=== PATIENT | female | born 1985 | race Caucasian/White ===

== ENCOUNTER 2022-01-23 09:06 | Day surgery (SDC) | payer BC, OTHER ==
--- NOTE | 2022-01-15 15:02 | HP ---
DATE OF SURGERY: 01/23/2022 HISTORY OF PRESENT ILLNESS: The patient is a 36-year-old female presents with complaints of epigastric pain, nausea, vomiting and diarrhea. Also reporting dark stools. It has been going on for several years and getting worse. She had a cholecystectomy 12 years ago. She does have a lot of bloating and gas. She states some crampy pain at times. Reported some watery stools at times, seven to eight times a day that have been mucousy at times. It may have been coffee to black colored. PAST MEDICAL HISTORY: Diabetes. Tachycardia. Hypertension. Reflux. Anxiety. Hyperlipidemia. PAST SURGICAL HISTORY: Tubal ligation. Cholecystectomy. Sinus surgery. Craniotomy for arachnoid cyst that was benign. ALLERGIES: NKDA. MEDICATIONS: Metformin, omeprazole, metoprolol, lisinopril, Pristiq, iron. FAMILY HISTORY: Heart disease. Liver cancer. Lung cancer. Colon cancer. Hypertension. Diabetes. SOCIAL HISTORY: None reported. REVIEW OF SYSTEMS: CONSTITUTIONAL: Denies fever or chills. CHEST: Denies shortness of breath. CVS: Denies chest pain. ABDOMEN: Reports abdomen pain, nausea, vomiting, diarrhea. : Reports rectal bleeding. PHYSICAL EXAMINATION: GENERAL: No acute distress. CHEST: Nonlabored. No shortness of breath. CVS: Regular rate and rhythm. ABDOMEN: Soft, nontender. IMPRESSION: Epigastric pain, nausea, vomiting, diarrhea and dark stools. PLAN: EGD and colonoscopy with Dr. Sam Mancia. As dictated by Ivis Benedict NP.
[~2022-01-23 09:06] MED LIST: Lactated Ringers 1,000 ML IV SCH
[2022-01-23] MEDS ORDERED: Lactated Ringers 1,000 ML IV ONE ×2 (09:54→12:10)
[2022-01-23] MEDS ORDERED: Versed 2 MG/2 ML Injection IV ONE (10:06)
[2022-01-23] MEDS ORDERED: Versed 2 MG/2 ML Injection ONE (10:08)
[2022-01-23] MEDS ORDERED: DIPRIVAN 200 MG/20 ML IV ONE ×2 (12:04→12:25)
[2022-01-23] MEDS ORDERED: Xylocaine-Mpf 2% 5 Ml Vial ONE (12:04)
[2022-01-23 12:56] VITALS: PULSE 71; O2SAT 99
[2022-01-23 13:04] VITALS: BP 138/94
--- NOTE | 2022-01-23 14:20 | OP ---
SURGERY DATE: 01/23/2022 SURGERY TIME: 1208 PREOPERATIVE DIAGNOSIS: 1. PATIENT IS CONSIDERING GASTRIC BYPASS. SHE HAS MORBID OBESITY. SHE HAS LOTS OF NAUSEA, VOMITING, AND EPIGASTRIC PAIN. SHE ALSO HAS 7-8 LOOSE, CLEAR STOOLS A DAY. POSTOPERATIVE DIAGNOSIS: 1. PATIENT IS CONSIDERING GASTRIC BYPASS. SHE HAS MORBID OBESITY. SHE HAS LOTS OF NAUSEA, VOMITING, AND EPIGASTRIC PAIN. SHE ALSO HAS 7-8 LOOSE, CLEAR STOOLS A DAY. PROCEDURE: 1. EGD. 2. Colonoscopy. SURGEON: Sam Mancia M.D. ANESTHESIA: MAC. COMPLICATIONS: None. CONDITION: Stable. OPERATIVE PROCEDURE: The scope was instructed. Phrenoesophageal junction normal. Esophagus normal down to esophagogastric junction. Grade 1/4 gastroesophageal reflux disease. No hiatal hernia. Fundus, body, and antrum normal. Pylorus normal. Duodenal bulb normal. 2nd portion normal. Scope withdrawn, looped upon itself, normal. Scope withdrawn. IMPRESSION: 1. BASICALLY NORMAL EXAMINATION EXCEPT FOR GRADE 1 GASTROESOPHAGEAL REFLUX DISEASE. Lower Scope: Anal digital examination normal. Scope introduced. Advanced up to the cecum. Not a particularly long colon. There was no redundancy. The colon mucosa looked excellent. The base of the cecum, ileocecal valve, and appendiceal orifice normal. Ascending, hepatic, transverse, splenic, descending, sigmoid, rectum, and anus normal. IMPRESSION: NORMAL EXAMINATION.
[2022-01-23 22:00] LABS: 027 TOX PROD PRESUMPTIVE NEGATIVE (NEGATIVE); TOXIGENIC C. DIFF ORG NEGATIVE (NEGATIVE)
== END 2022-01-23 13:03 | disposition home or self-care (01) ==
LOC: SDC 09:06
PROVIDERS: ATTEND Surgery
DX: K21.9 Gastro-esophageal reflux disease without esophagitis (principal); R11.2 Nausea with vomiting, unspecified; R10.13 Epigastric pain; R19.7 Diarrhea, unspecified; E66.9 Obesity, unspecified; E11.9 Type 2 diabetes mellitus without complications
CPT/HCPCS: 81025; 82947; 87045; 87046; 87328; 87329; 87493; 87507; J2250; J2704

== ENCOUNTER 2022-05-13 13:04 | Emergency (ER) | payer OTHER ==
[2022-05-13] MEDS ORDERED: CITROMA 296 ML PO ONE (13:24)
[2022-05-13] MEDS ORDERED: DULCOLAX 5 MG PO ONE (13:36)
[2022-05-13] MEDS: Miralax Powder 17GM PACKET PO PRN ×3 (13:47→15:27)
--- NOTE | 2022-05-13 13:48 | XRAY ---
Indication: Constipation following gastric bypass April 15, 2022 KUB nonacute and nonobstructed with mild diffuse colonic fecal debris, cholecystotomy clips, and left abdomen suture material. Solid organs and osseous structures unremarkable.
[2022-05-13] MEDS ORDERED: Dulcolax 10 MG SUPP PR ONE (17:02)
[2022-05-13] MEDS ORDERED: Hydromorphone 1 mg/ml Injection IM ONE (17:07)
[2022-05-13] MEDS ORDERED: Hydromorphone 1 mg/ml Injection ONE (17:07)
[2022-05-13] MEDS ORDERED: ZOFRAN ODT 4 MG ONE (17:26)
[2022-05-13] MEDS ORDERED: ZOFRAN ODT 4 MG PO ONE (17:26)
--- NOTE | 2022-05-13 19:01 | ERPHSYRPT ---
- History of Present Illness Time Seen by Provider: 05/13/22 13:40 Source: patient Exam Limitations: no limitations Patient Subjective Stated Complaint: pt states "I had gastric bypass on Apr 15. I have not been able to have a bowel movement for 3 weeks. I have used multiple OTC medicines and there is a piece stuck." Triage Nursing Assessment: pt ambulated into the er; pt is axo x4; c/o constipation; pt states 3/10 pain to abd; c/o N/V; abd is obese, soft, nontender; hyperactive bowel sounds in all quads; vitals wnl Physician History: Patient is a 36-year-old white female who presents with constipation she has had trouble for 3 weeks. She had a bypass on April 15. She has lost over 30 pounds. She has tried 3 soapsuds enema at home without success Timing/Duration: week(s) (3) Severity: moderate Associated Symptoms: abdominal pain Allergies/Adverse Reactions: promethazine [From Phenergan] Allergy (Verified 05/13/22 13:19) site reaction red, swelling prochlorperazine [From Compazine] Adverse Reaction (Verified 05/13/22 13:19) panic attack Home Medications: Metoprolol Tartrate 25 mg [Lopressor 25MG Tab] 50 mg PO BID 01/21/22 [History] Ondansetron [Ondansetron Odt ] 4 mg PO Q6H PRN 05/13/22 [History] Hx Tetanus, Diphtheria Vaccination/Date Given: Yes Hx Influenza Vaccination/Date Given: No Hx Pneumococcal Vaccination/Date Given: No Immunizations Up to Date: Yes Travel Risk - International Travel Have you traveled outside of the country in past 3 weeks: No - Coronavirus Screening Are you exhibiting any of the following symptoms?: No Close contact with a COVID-19 positive Pt in past 14-21 Days: No - Vaccine Status Have you recieved a Covid-19 vaccination: Yes Clerk General: Moderna - Vaccination Dates Date of 2cond Vaccination (if applicable): 2020 - Review of Systems Constitutional: No Fever, No Chills Eyes: No Symptoms Ears, Nose, & Throat: No Symptoms Respiratory: No Cough, No Dyspnea Cardiac: No Chest Pain, No Edema, No Syncope Abdominal/Gastrointestinal: Constipation, No Abdominal Pain, No Nausea, No Vomiting, No Diarrhea Genitourinary Symptoms: No Dysuria Musculoskeletal: No Back Pain, No Neck Pain Skin: No Rash Neurological: No Dizziness, No Focal Weakness, No Sensory Changes Psychological: No Symptoms Endocrine: No Symptoms All Other Systems: Reviewed and Negative - Past Medical History Pertinent Past Medical History: Yes Neurological History: No Pertinent History ENT History: No Pertinent History Cardiac History: Arrhythmia, Hypertension Respiratory History: No Pertinent History Endocrine Medical History: No Pertinent History Musculoskeletal History: No Pertinent History GI Medical History: No Pertinent History History: No Pertinent History Psycho-Social History: Anxiety, Depression Female Reproductive Disorders: No Pertinent History Other Medical History: cardio [facility] states "heart arrythmia" - Past Surgical History Past Surgical History: Yes Neuro Surgical History: Other Cardiac: No Pertinent History Respiratory: No Pertinent History Gastrointestinal: Cholecystectomy Genitourinary: No Pertinent History Musculoskeletal: No Pertinent History Female Surgical History: Tubal Ligation Other Surgical History: sinus surgery 2001, craniotomy 2019, gastric bypass - Social History Smoking Status: Former smoker Exposure to second hand smoke: No Drug Use: none Patient Lives Alone: No - Female History Hx Now: No - Nursing Vital Signs Nursing Vital Signs: Initial Vital Signs Temperature 99.7 F 05/13/22 13:20 Pulse Rate 72 05/13/22 13:20 Respiratory Rate 16 05/13/22 13:20 Blood Pressure 129/86 05/13/22 13:20 O2 Sat by Pulse Oximetry 98 05/13/22 13:20 Pain Scale Pain Intensity 8 - Physical Exam General Appearance: mild distress Eye Exam: PERRL/EOMI, eyes nml inspection Ears, Nose, Throat Exam: normal ENT inspection, TMs normal, pharynx normal, moist mucous membranes Neck Exam: normal inspection, non-tender, supple, full range of motion Respiratory Exam: normal breath sounds, lungs clear, No respiratory distress Cardiovascular Exam: regular rate/rhythm, normal heart sounds, normal peripheral pulses Gastrointestinal/Abdomen Exam: soft, normal bowel sounds, No tenderness, No mass Rectal Exam: other (Rectal impaction) Back Exam: normal inspection, normal range of motion, No CVA tenderness, No vertebral tenderness Extremity Exam: normal inspection, normal range of motion, pelvis stable Neurologic Exam: alert, oriented x 3, cooperative, normal mood/affect, nml cerebellar function, nml station & gait, sensation nml, No motor deficits Skin Exam: normal color, warm, dry, No rash Lymphatic Exam: No adenopathy SpO2 Interpretation: normal SpO2: 96 O2 Delivery: Room Air - Course Nursing assessment & vital signs reviewed: Yes - Radiology Exams Abdomen X-ray Interpretation: Reviewed by me Ordered Tests: Active Orders 24 hr Category Date Time Status KUB Stat Exams 05/13/22 13:23 Completed Medication Summary Generic Name Dose Route Start Last Admin Trade Name Freq PRN Reason Stop Dose Admin Polyethylene Glycol 17 gm 05/14/22 10:00 05/13/22 15:27 Polyethylene Glycol 3350 17 Gm Packet PO 06/13/22 09:59 17 gm [id number] PRN Administration Discontinued Medications Generic Name Dose Route Start Last Admin Trade Name Freq PRN Reason Stop Dose Admin Bisacodyl 10 mg 05/13/22 13:36 05/13/22 13:47 Bisacodyl 5 Mg Tablet.Ec PO 05/13/22 13:37 10 mg ONCE ONE Administration Bisacodyl 10 mg 05/13/22 17:02 05/13/22 17:14 Bisacodyl 10 Mg Supp.Rect DE 05/13/22 17:03 10 mg STAT ONE Administration Hydromorphone HCl 1 mg 05/13/22 17:07 05/13/22 17:21 Hydromorphone 1 Mg/1ml Inj 1 Mg/Ml Syringe IM 05/13/22 17:08 1 mg STAT ONE Administration Hydromorphone HCl Confirm 05/13/22 17:07 Hydromorphone 1 Mg/1ml Inj 1 Mg/Ml Syringe Administered 05/13/22 17:08 Dose 1 mg .ROUTE .STK-MED ONE Magnesium Citrate 296 ml 05/13/22 13:24 05/13/22 14:18 Magnesium Citrate 296 Ml Solution PO 05/13/22 13:25 Not Given STAT ONE Ondansetron HCl 4 mg 05/13/22 17:26 05/13/22 17:27 Zofran 4 Mg/Udtablet Orally Disintegrating PO 05/13/22 17:27 4 mg STAT ONE Administration Ondansetron HCl Confirm 05/13/22 17:26 Zofran 4 Mg/Udtablet Orally Disintegrating Administered 05/13/22 17:27 Dose 4 mg .ROUTE .STK-MED ONE - Progress Progress: unchanged - Departure Departure Disposition: Home Clinical Impression: Constipation Condition: Stable Critical Care Time: No Referrals: CHRISTIANO CROUCH MD [Primary Care Provider] - Follow up/PCP as directed Instructions: Constipation, Adult (DC) Prescriptions: Bisacodyl 10 mg [Dulcolax 10 MG SUPP] 10 mg DE STAT 3 Days #6 supp.rect Polyethylene Glycol 3350 17 gm [Miralax Powder 17GM PACKET] 17 gm PO Q2H 2 Days #12 packet
[2022-05-13 19:24] VITALS: BP 127/70; PULSE 70; O2SAT 95
== END 2022-05-13 19:24 | disposition home or self-care (01) ==
LOC: ED 13:04
DX: K59.00 Constipation, unspecified (principal); R10.9 Unspecified abdominal pain; Z98.84 Bariatric surgery status; I10 Essential (primary) hypertension; Z79.899 Other long term (current) drug therapy
CPT/HCPCS: 74018; 96372; 99284; J1170; Q0162; A9270-GY

== ENCOUNTER 2022-08-01 12:44 | Emergency (ER) | payer OTHER ==
[2022-08-01] MEDS ORDERED: Zofran 4 MG/2 ML VIAL IV ONE ×2 (13:24→14:55)
[2022-08-01] MEDS ORDERED: Zofran 4 MG/2 ML VIAL ONE ×2 (13:29→14:55)
[2022-08-01 13:34] LABS: Absolute Neutrophil Ct (ANC) 3.64 x10^3/uL (1.4-6.9); Basophil (Absolute #) 0.02 x10^3/uL (0-0.4); Eosinophil (Absolute #) 0.06 x10^3/uL (0-0.5); Hematocrit 41.5 % (35-47); Hemoglobin 12.9 g/dL (12.0-16.0); Lymphocyte (Absolute #) 1.99 x10^3/uL (1.0-4.6); Lymphocytes % 33.1 % (24.0-44.0); Mean Corpuscular Hemoglobin 26.4 pg (26-32); Mean Corpuscular Hgb Concent. 31.1 g/dL (32-36); Mean Platelet Volume 11.3 fL (7.5-11.0); Neutrophil % 60.4 % (36.0-66.0); Platelet Count 244 x10^3/uL (150-450); Red Blood Count 4.88 x10^6/uL (4.1-5.4); Red Cell Distribution Width 13.8 % (11.5-14.0)
[2022-08-01 13:42] LABS: Appearance CLEAR (CLEAR); Bilirubin MODERATE (NEGATIVE); Epithelial Cells RARE /HPF (FEW); Glucose NEGATIVE (NEGATIVE); Ketones LARGE-80 (NEGATIVE); Mucus MANY /HPF (NEGATIVE); Ph 5.5 (5-6); RBC 0-2 /HPF (0-2); RBC NEGATIVE Ery/ul (0-5); Specific Gravity >=1.030 (1.005-1.025)
[2022-08-01 13:43] LABS: Dipstick done @ ? MAIN LAB; Nitrite NEGATIVE (NEGATIVE); Protein,Urine Dip 30 (Negative); Urine Cultured Indicated? NO; Urobilinogen 4 mg/dL (0-1)
[2022-08-01 13:47] LABS: ALBUMIN 4.1 g/dL (3.5-5.0); ALKALINE PHOSPHATASE 110 U/L (38-126); AMYLASE 85 U/L (30-110); ANION GAP 11.8 MEQ/L (5-15); BLOOD UREA NITROGEN 7 mg/dL (7-17); CHLORIDE 107 mmol/L (98-107); Carbon Dioxide 23 mmol/L (22-30); Creatinine 1 0.46 mg/dL (0.52-1.04); EST GLOMERULAR FILTRATION RATE > 60.0 ML/MIN; Glucose 107 mg/dL (74-106); LIPASE 147 U/L (23-300); Potassium 3.2 mmol/L (3.5-5.1); SGOT/AST 36 U/L (14-36); SGPT/ALT 23 U/L (0-35); SODIUM 139 mmol/L (137-145); Total Protein 7.5 g/dL (6.3-8.2)
--- NOTE | 2022-08-01 14:23 | XRAY ---
Indication: Left upper quadrant pain. Multiple contiguous axial images obtained through the abdomen and pelvis without contrast. Comparison: None Lung bases clear. Heart not enlarged. Previous gastric bypass surgery and cholecystectomy. Noncontrasted stomach and bowel loops appear nonobstructed with normal appendix. No free fluid/air. 1.5 cm hepatic cyst versus hemangioma adjacent falciform ligament. Remaining liver, pancreas, spleen, adrenal glands, kidneys, ureters, bladder, uterus, and aorta are unremarkable for noncontrast exam. Osseous structures intact. No ventral or inguinal hernias. Impression: Small hepatic cyst versus benign hemangioma. Bariatric surgery and cholecystectomy. Remaining CT abdomen/pelvis without contrast exam is negative.
--- NOTE | 2022-08-01 14:26 | ERPHSYRPT ---
- History of Present Illness Historian: patient Exam Limitations: no limitations Patient Subjective Stated Complaint: Pt states "I had gastric bypass surgery in april and my back is hurting on the left side and my belly is cramping horribly." Triage Nursing Assessment: PT presented alert and oriented X 3, skin pwd. PT ambulates with an upright steady gait, able to speak in clear full sentences pt in no apparent respiratory distress. Pt resting comfortably on the bed. Physician History: 36 yo wf w epigastric pain x1day. Pain is 7/10, and nothing makes it better or worse. She has had a gastric bypass in the past. Pt has had N/V wo hemat emesis/diarrhea/melena/hematochezia. Dysuria/hematuria are also denied. She also complains of L CVA pain. Cough/coryza/chest pain/ all denied. Timing/Duration: yesterday Activities at Onset: rest Quality: burning, cramping Abdominal Pain Onset Location: epigastric Pain Radiation: no radiation Severity of Pain-Max: moderate Severity of Pain-Current: moderate Modifying Factors: Improves With: nothing Associated Symptoms: back, loss of appetite, nausea, vomiting Previous symptoms: same symptoms as today Allergies/Adverse Reactions: promethazine [From Phenergan] Allergy (Verified 05/13/22 13:19) site reaction red, swelling prochlorperazine [From Compazine] Adverse Reaction (Verified 05/13/22 13:19) panic attack Home Medications: Metoprolol Tartrate 25 mg [Lopressor 25MG Tab] 50 mg PO BID 01/21/22 [History] Ondansetron [Ondansetron Odt ] 4 mg PO Q6H PRN 05/13/22 [History] Hx Tetanus, Diphtheria Vaccination/Date Given: Yes Hx Influenza Vaccination/Date Given: No Hx Pneumococcal Vaccination/Date Given: No Immunizations Up to Date: Yes Travel Risk - International Travel Have you traveled outside of the country in past 3 weeks: No - Coronavirus Screening Are you exhibiting any of the following symptoms?: No Close contact with a COVID-19 positive Pt in past 14-21 Days: No - Vaccine Status Have you recieved a Covid-19 vaccination: Yes Marine Consultant: Moderna - Vaccination Dates Date of 2cond Vaccination (if applicable): 2020 - Review of Systems Constitutional: No Symptoms Eyes: No Symptoms Ears, Nose, & Throat: No Symptoms Respiratory: No Symptoms Cardiac: No Symptoms Abdominal/Gastrointestinal: No Symptoms, Abdominal Pain, Nausea, Vomiting Genitourinary Symptoms: No Symptoms Musculoskeletal: No Symptoms Skin: No Symptoms Neurological: No Symptoms Psychological: No Symptoms Endocrine: No Symptoms Hematologic/Lymphatic: No Symptoms Immunological/Allergic: No Symptoms - Past Medical History Pertinent Past Medical History: Yes Neurological History: No Pertinent History ENT History: No Pertinent History Cardiac History: Arrhythmia, Hypertension Respiratory History: No Pertinent History Endocrine Medical History: No Pertinent History Musculoskeletal History: No Pertinent History GI Medical History: No Pertinent History History: No Pertinent History Psycho-Social History: Anxiety, Depression Female Reproductive Disorders: No Pertinent History Other Medical History: cardio [facility] states "heart arrythmia" - Past Surgical History Past Surgical History: Yes Neuro Surgical History: Other Cardiac: No Pertinent History Respiratory: No Pertinent History Gastrointestinal: Cholecystectomy Genitourinary: No Pertinent History Musculoskeletal: No Pertinent History Female Surgical History: Tubal Ligation Other Surgical History: sinus surgery 2001, craniotomy 2019, gastric bypass - Social History Smoking Status: Former smoker Exposure to second hand smoke: No Drug Use: none Patient Lives Alone: No - Female History Hx Last Menstrual Period: 07/21/2022 Hx Now: No - Nursing Vital Signs Nursing Vital Signs: Initial Vital Signs Temperature 97.7 F 08/01/22 12:52 Pulse Rate 87 08/01/22 12:52 Respiratory Rate 18 08/01/22 12:52 Blood Pressure 168/104 08/01/22 12:52 O2 Sat by Pulse Oximetry 100 08/01/22 12:52 Pain Scale Pain Intensity 0 Hypertensive - Physical Exam General Appearance: no apparent distress Eye Exam: PERRL/EOMI, eyes nml inspection Ears, Nose, Throat Exam: normal ENT inspection, TMs normal, pharynx normal, moist mucous membranes Neck Exam: normal inspection, non-tender, supple, full range of motion, No meningismus, No mass, No Brudzinski, No Kernig's Respiratory Exam: normal breath sounds, lungs clear, airway intact, No respiratory distress Cardiovascular Exam: regular rate/rhythm, normal heart sounds, normal peripheral pulses, capillary refill <2 sec, No murmur Gastrointestinal/Abdomen Exam: soft, normal bowel sounds, tenderness (Moderate epigastric and LUQ TTP wo guarding or rebound) Back Exam: normal inspection, normal range of motion, No CVA tenderness, No vertebral tenderness Extremity Exam: normal inspection, normal range of motion Neurologic Exam: alert, oriented x 3, cooperative, continuous dryout operator helper II-XII nml as tested, normal mood/affect, nml station & gait Skin Exam: normal color Lymphatic Exam: No adenopathy SpO2 Interpretation: normal SpO2: 100 O2 Delivery: Room Air - Course Nursing assessment & vital signs reviewed: Yes - CT Exams Abdomen/Pelvis CT Interpretation: Discussed w/radiologist (Nothing acute) Ordered Tests: Active Orders 24 hr Category Date Time Status ABDOMEN AND PELVIS W/0 CONTRAS [CT] Stat Exams 08/01/22 13:22 Completed AMYLASE Stat Lab 08/01/22 13:35 Completed CBC W DIFF Stat Lab 08/01/22 13:35 Completed CMP Stat Lab 08/01/22 13:35 Completed HCG QUALITATIVE,SERUM Stat Lab 08/01/22 13:35 Completed LIPASE Stat Lab 08/01/22 13:35 Completed UA W/RFX CULTURE Stat Lab 08/01/22 13:35 Completed Medication Summary Discontinued Medications Generic Name Dose Route Start Last Admin Trade Name Freq PRN Reason Stop Dose Admin Sodium Chloride 1,000 mls @ 999 mls/hr 08/01/22 14:43 08/01/22 16:01 Sodium Chloride 0.9% 1000 Ml IV 08/01/22 15:43 Infused .Q1H1M STA Infusion Sodium Chloride Confirm 08/01/22 14:47 Sodium Chloride 0.9% 1000 Ml Administered 08/01/22 14:48 Dose 1,000 mls @ ud .ROUTE .STK-MED ONE Ondansetron HCl 4 mg 08/01/22 13:24 08/01/22 13:30 Ondansetron Hcl 4 Mg/2 Ml Vial IV 08/01/22 13:25 4 mg STAT ONE Administration Ondansetron HCl Confirm 08/01/22 13:29 Ondansetron Hcl 4 Mg/2 Ml Vial Administered 08/01/22 13:30 Dose 4 mg .ROUTE .STK-MED ONE Ondansetron HCl 4 mg 08/01/22 14:55 08/01/22 15:03 Ondansetron Hcl 4 Mg/2 Ml Vial IV 08/01/22 14:56 4 mg STAT ONE Administration Ondansetron HCl Confirm 08/01/22 14:55 Ondansetron Hcl 4 Mg/2 Ml Vial Administered 08/01/22 14:56 Dose 4 mg .ROUTE .STK-MED ONE Potassium Chloride 40 meq 08/01/22 14:44 08/01/22 14:49 Potassium Chloride Tab 10 Meq Tab PO 08/01/22 14:45 40 meq STAT ONE Administration Potassium Chloride Confirm 08/01/22 14:47 Potassium Chloride Tab 10 Meq Tab Administered 08/01/22 14:48 Dose 40 meq PO .STK-MED ONE Lab/Rad Data: Laboratory Result Diagrams 08/01/22 13:35 08/01/22 13:35 Laboratory Results 08/01/22 08/01/22 08/01/22 Range/Units 15:00 13:35 13:35 WBC (4.0-10.5) x10^3/uL RBC (4.1-5.4) x10^6/uL Hgb (12.0-16.0) g/dL Hct (35-47) % MCV (78-100) fL MCH (26-32) pg MCHC (32-36) g/dL RDW (11.5-14.0) % Plt Count (150-450) x10^3/uL MPV (7.5-11.0) fL Gran % (36.0-66.0) % Immature Gran % (Auto) (0.00-0.4) % Nucleat RBC Rel Count (0.00-0.1) % Eos # (Auto) (0-0.5) x10^3/uL Immature Gran # (Auto) (0.00-0.03) x10^3u/L Absolute Lymphs (auto) (1.0-4.6) x10^3/uL Absolute Monos (auto) (0.0-1.3) x10^3/uL Absolute Nucleated RBC (0.00-0.01) x10^3u/L Lymphocytes % (24.0-44.0) % Monocytes % (0.0-12.0) % Eosinophils % (0.00-5.0) % Basophils % (0.0-0.4) % Absolute Granulocytes (1.4-6.9) x10^3/uL Basophils # (0-0.4) x10^3/uL Sodium (137-145) mmol/L Potassium (3.5-5.1) mmol/L Chloride (98-107) mmol/L Carbon Dioxide (22-30) mmol/L Anion Gap (5-15) MEQ/L BUN (7-17) mg/dL Creatinine (0.52-1.04) mg/dL Estimated GFR ML/MIN Glucose (74-106) mg/dL Calcium (8.4-10.2) mg/dL Total Bilirubin (0.2-1.3) mg/dL AST (14-36) U/L ALT (0-35) U/L Alkaline Phosphatase (38-126) U/L Serum Total Protein (6.3-8.2) g/dL Albumin (3.5-5.0) g/dL Amylase (30-110) U/L Lipase (23-300) U/L Serum , Qual NEGATIVE (Negative) Urinalys Dipstick Clnc MAIN LAB Urine Color GALDINO (YELLOW) Urine Appearance CLEAR (CLEAR) Urine pH 5.5 (5-6) Ur Specific Tyner >=1.030 A (1.005-1.025) POC Urine Protein Conf 30 A (Negative) Urine Ketones LARGE-80 A (NEGATIVE) Urine Nitrite NEGATIVE (NEGATIVE) Urine Bilirubin MODERATE A (NEGATIVE) Urine Urobilinogen 4 A (0-1) mg/dL Urine Leukocytes NEGATIVE (NEGATIVE) Urine WBC (Auto) 3-5 A (0-5) /HPF Urine RBC (Auto) 0-2 (0-2) /HPF U Epithel Cells (Auto) RARE (FEW) /HPF Urine Bacteria (Auto) NONE (NEGATIVE) /HPF Urine RBC NEGATIVE (0-5) Nikko/ul Urine Mucus (Auto) MANY A (NEGATIVE) /HPF Ur Culture Indicated? NO Urine Glucose NEGATIVE (NEGATIVE) mg/dL Influenza Type A Ag NEGATIVE (NEGATIVE) Influenza Type B Ag NEGATIVE (NEGATIVE) RSV (PCR) NEGATIVE (Negative) SARS-CoV-2 (PCR) NEGATIVE (NEGATIVE) 08/01/22 08/01/22 Range/Units 13:35 13:35 WBC 6.0 (4.0-10.5) x10^3/uL RBC 4.88 (4.1-5.4) x10^6/uL Hgb 12.9 (12.0-16.0) g/dL Hct 41.5 (35-47) % MCV 85.0 (78-100) fL MCH 26.4 (26-32) pg MCHC 31.1 L (32-36) g/dL RDW 13.8 (11.5-14.0) % Plt Count 244 (150-450) x10^3/uL MPV 11.3 H (7.5-11.0) fL Gran % 60.4 (36.0-66.0) % Immature Gran % (Auto) 0.2 (0.00-0.4) % Nucleat RBC Rel Count 0.0 (0.00-0.1) % Eos # (Auto) 0.06 (0-0.5) x10^3/uL Immature Gran # (Auto) 0.01 (0.00-0.03) x10^3u/L Absolute Lymphs (auto) 1.99 (1.0-4.6) x10^3/uL Absolute Monos (auto) 0.30 (0.0-1.3) x10^3/uL Absolute Nucleated RBC 0.00 (0.00-0.01) x10^3u/L Lymphocytes % 33.1 (24.0-44.0) % Monocytes % 5.0 (0.0-12.0) % Eosinophils % 1.0 (0.00-5.0) % Basophils % 0.3 (0.0-0.4) % Absolute Granulocytes 3.64 (1.4-6.9) x10^3/uL Basophils # 0.02 (0-0.4) x10^3/uL Sodium 139 (137-145) mmol/L Potassium 3.2 L (3.5-5.1) mmol/L Chloride 107 (98-107) mmol/L Carbon Dioxide 23 (22-30) mmol/L Anion Gap 11.8 (5-15) MEQ/L BUN 7 (7-17) mg/dL Creatinine 0.46 L (0.52-1.04) mg/dL Estimated GFR > 60.0 ML/MIN Glucose 107 H (74-106) mg/dL Calcium 9.0 (8.4-10.2) mg/dL Total Bilirubin 1.20 (0.2-1.3) mg/dL AST 36 (14-36) U/L ALT 23 (0-35) U/L Alkaline Phosphatase 110 (38-126) U/L Serum Total Protein 7.5 (6.3-8.2) g/dL Albumin 4.1 (3.5-5.0) g/dL Amylase 85 (30-110) U/L Lipase 147 (23-300) U/L Serum , Qual (Negative) Urinalys Dipstick Clnc Urine Color (YELLOW) Urine Appearance (CLEAR) Urine pH (5-6) Ur Specific Tyner (1.005-1.025) POC Urine Protein Conf (Negative) Urine Ketones (NEGATIVE) Urine Nitrite (NEGATIVE) Urine Bilirubin (NEGATIVE) Urine Urobilinogen (0-1) mg/dL Urine Leukocytes (NEGATIVE) Urine WBC (Auto) (0-5) /HPF Urine RBC (Auto) (0-2) /HPF U Epithel Cells (Auto) (FEW) /HPF Urine Bacteria (Auto) (NEGATIVE) /HPF Urine RBC (0-5) Nikko/ul Urine Mucus (Auto) (NEGATIVE) /HPF Ur Culture Indicated? Urine Glucose (NEGATIVE) mg/dL Influenza Type A Ag (NEGATIVE) Influenza Type B Ag (NEGATIVE) RSV (PCR) (Negative) SARS-CoV-2 (PCR) (NEGATIVE) - Progress Progress: improved Progress Note: 08/01/22 16:03 4mg IV Zofran x2 1L NS bolus 40mEQ po KCl Counseled pt/family regarding: lab results, diagnosis, need for follow-up, rad results - Departure Departure Disposition: Home Clinical Impression: Abdominal pain, Hypokalemia Condition: Stable Critical Care Time: No Referrals: GELY VALDEZ NP [Primary Care Provider] - Follow up/PCP as directed Instructions: Hypokalemia (DC), Severe Abdominal Pain, Adult (DC) Additional Instructions: Zofran for nausea/vomiting Fluids Follow up with your family MD Return to ER for increasing pain or temperature greater than 100.5 Forms: Work/School Release Form Prescriptions: Ondansetron ODT 4 MG [Zofran Odt 4 mg] 4 mg PO Q6H PRN PRN #10 tablet PRN Reason: Nausea
[2022-08-01] MEDS ORDERED: Sodium Chloride 0.9% 1000 ML 1,000 ML IV STA (14:43)
[2022-08-01] MEDS ORDERED: Klor Con PO ONE ×2 (14:44→14:47)
[2022-08-01] MEDS ORDERED: Sodium Chloride 0.9% 1000 ML 1,000 ML ONE (14:47)
[2022-08-01 15:35] LABS: INFLUENZA A NEGATIVE (NEGATIVE); INFLUENZA B NEGATIVE (NEGATIVE); RESPIRATORY SYNCTIAL VIRUS NEGATIVE (Negative); SARS-CoV-2 Xpert Express NEGATIVE (NEGATIVE)
[2022-08-01 16:05] VITALS: BP 128/70; PULSE 72
[2022-08-01 16:08] VITALS: O2SAT 100
== END 2022-08-01 16:17 | disposition home or self-care (01) ==
LOC: ED 12:44
DX: R10.13 Epigastric pain (principal); E87.6 Hypokalemia; R11.2 Nausea with vomiting, unspecified; I10 Essential (primary) hypertension; Z79.899 Other long term (current) drug therapy
CPT/HCPCS: 0241U; 36000; 36415; 74176; 80053; 81015; 82150; 83690; 84703; 85025; 96360; 96374; 96376; 99284; J2405; A9270-GY

== ENCOUNTER 2023-02-06 19:46 | Emergency (ER) | payer OTHER ==
--- NOTE | 2023-02-06 19:48 | ERPHSYRPT ---
- History of Present Illness Time Seen by Provider: 02/06/23 19:48 Historian: patient Exam Limitations: no limitations Physician History: This is a 37-year-old overweight white female patient who has had a gastric bypass surgery done in April 2022 and presents with upper abdominal pain that was relatively sudden in onset that radiated into her back. It occurred 1 hour prior to arrival. Patient has not felt well for the last few days. She had some burning in the epigastric area followed by a sharp squeezing stabbing pain that occurred 1 hour prior to arrival. Patient has a history of hypertension, arrhythmia, anxiety, depression, cholecystectomy, bilateral tubal ligation and gastric bypass. Timing/Duration: today Quality: burning, sharpness, stabbing, other (Squeezing) Abdominal Pain Onset Location: epigastric Pain Radiation: chest (Lower chest in the midline) Severity of Pain-Max: mild (To moderate) Severity of Pain-Current: mild (To moderate) Modifying Factors: Improves With: nothing Associated Symptoms: denies symptoms Previous symptoms: no prior history, no recent treatment Allergies/Adverse Reactions: promethazine [From Phenergan] Allergy (Verified 02/06/23 20:13) site reaction red, swelling prochlorperazine [From Compazine] Adverse Reaction (Verified 02/06/23 20:13) panic attack Home Medications: Ondansetron [Ondansetron Odt ] 4 mg PO Q6H PRN 05/13/22 [History] Metoprolol Succinate 50 mg [Toprol Xl 50 MG] 50 mg PO BID 02/06/23 [History] Hx Tetanus, Diphtheria Vaccination/Date Given: Yes Hx Influenza Vaccination/Date Given: No Hx Pneumococcal Vaccination/Date Given: No Travel Risk - International Travel Have you traveled outside of the country in past 3 weeks: No - Coronavirus Screening Are you exhibiting any of the following symptoms?: No Close contact with a COVID-19 positive Pt in past 14-21 Days: No - Vaccine Status Have you recieved a Covid-19 vaccination: Yes [employer]: Moderna - Vaccination Dates Date of 2cond Vaccination (if applicable): 2020 - Review of Systems Constitutional: No Symptoms Eyes: No Symptoms Ears, Nose, & Throat: No Symptoms Respiratory: No Symptoms Cardiac: No Symptoms Abdominal/Gastrointestinal: Abdominal Pain (Epigastric) Genitourinary Symptoms: No Symptoms Musculoskeletal: No Symptoms Skin: No Symptoms Neurological: No Symptoms Psychological: No Symptoms Endocrine: No Symptoms Hematologic/Lymphatic: No Symptoms Immunological/Allergic: No Symptoms All Other Systems: Reviewed and Negative - Past Medical History Pertinent Past Medical History: Yes Neurological History: No Pertinent History ENT History: No Pertinent History Cardiac History: Arrhythmia, Hypertension Respiratory History: No Pertinent History Endocrine Medical History: No Pertinent History Musculoskeletal History: No Pertinent History GI Medical History: No Pertinent History History: No Pertinent History Psycho-Social History: Anxiety, Depression Female Reproductive Disorders: No Pertinent History Other Medical History: cardio Dr. Toby marcus [facility] states "heart arrythmia" - Past Surgical History Past Surgical History: Yes Neuro Surgical History: Other Cardiac: No Pertinent History Respiratory: No Pertinent History Gastrointestinal: Cholecystectomy Genitourinary: No Pertinent History Musculoskeletal: No Pertinent History Female Surgical History: Tubal Ligation Other Surgical History: sinus surgery 2001, craniotomy 2019, gastric bypass - Social History Smoking Status: Former smoker Exposure to second hand smoke: No Drug Use: none Patient Lives Alone: No - Nursing Vital Signs Nursing Vital Signs: Initial Vital Signs Temperature 97.9 F 02/06/23 19:55 Pulse Rate 86 02/06/23 19:55 Respiratory Rate 16 02/06/23 19:55 Blood Pressure 137/101 02/06/23 19:55 O2 Sat by Pulse Oximetry 100 02/06/23 19:55 Pain Scale Pain Intensity 8 - Physical Exam General Appearance: no apparent distress, alert, anxiety, obese Eye Exam: PERRL/EOMI, eyes nml inspection Ears, Nose, Throat Exam: normal ENT inspection, moist mucous membranes Neck Exam: normal inspection, non-tender, supple, full range of motion Respiratory Exam: normal breath sounds, lungs clear, airway intact, No chest tenderness, No respiratory distress Cardiovascular Exam: regular rate/rhythm, normal heart sounds, normal peripheral pulses Gastrointestinal/Abdomen Exam: soft, normal bowel sounds, tenderness (Epigastric area), guarding (Mild epigastric area with palpation) Pelvic Exam: not done Rectal Exam: not done Back Exam: normal inspection, normal range of motion, No CVA tenderness, No vertebral tenderness Extremity Exam: normal inspection, normal range of motion, pelvis stable Neurologic Exam: alert, oriented x 3, cooperative, 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, normal mood/affect, nml cerebellar function, nml station & gait, sensation nml Skin Exam: normal color, warm, dry Lymphatic Exam: No adenopathy SpO2 Interpretation: normal O2 Delivery: Room Air - Course Nursing assessment & vital signs reviewed: Yes Ordered Tests: Active Orders 24 hr Category Date Time Status EKG-ER Only STAT Care 02/06/23 20:34 Active IV Insertion STAT Care 02/06/23 20:27 Active ABDOMEN AND PELVIS W/0 CONTRAS [CT] Stat Exams 02/06/23 21:14 Completed AMYLASE Stat Lab 02/06/23 20:30 Completed CBC W DIFF Stat Lab 02/06/23 20:30 Completed CMP Stat Lab 02/06/23 20:30 Completed LIPASE Stat Lab 02/06/23 20:30 Completed TROPONIN Q4H Lab 02/06/23 20:30 Completed TROPONIN Q4H Lab 02/07/23 00:45 Ordered TROPONIN Q4H Lab 02/07/23 04:45 Ordered UA W/RFX UR CULTURE Stat Lab 02/06/23 22:08 Completed Medication Summary Discontinued Medications Generic Name Dose Route Start Last Admin Trade Name Leatha PRN Reason Stop Dose Admin Hydrocodone Bitart/Acetaminophen 2 tab 02/06/23 22:49 Hydrocodone/Apap 5/325 1 Tab Tablet PO 02/06/23 22:50 SENT HOME W/ PATIENT ONE Al Hydrox/Mg Hydrox/Simethicone Confirm 02/06/23 22:39 Mag Hydrox/Al Hydrox/Simeth 30 Ml Udcup Administered 02/06/23 22:40 Dose 30 ml .ROUTE .STK-MED ONE Hydromorphone HCl 1 mg 02/06/23 20:27 02/06/23 21:00 Hydromorphone 1 Mg/1ml Inj IV 02/06/23 20:28 1 mg STAT ONE Administration Hydromorphone HCl Confirm 02/06/23 20:57 Hydromorphone 1 Mg/1ml Inj Administered 02/06/23 20:58 Dose 1 mg .ROUTE .STK-MED ONE Hydromorphone HCl 0.5 mg 02/06/23 21:41 02/06/23 21:53 Hydromorphone 1 Mg/1ml Inj IV 02/06/23 21:42 0.5 mg STAT ONE Administration Hydromorphone HCl Confirm 02/06/23 21:51 Hydromorphone 1 Mg/1ml Inj Administered 02/06/23 21:52 Dose 1 mg .ROUTE .STK-MED ONE Sodium Chloride 1,000 mls @ 999 mls/hr 02/06/23 20:27 02/06/23 21:00 Sodium Chloride 0.9% 1000 Ml IV 02/06/23 21:27 999 mls/hr .Q1H1M STA Administration Sodium Chloride Confirm 02/06/23 20:57 Sodium Chloride 0.9% 1000 Ml Administered 02/06/23 20:58 Dose 1,000 mls @ ud .ROUTE .STK-MED ONE Lidocaine HCl Confirm 02/06/23 22:39 Lidocaine Hcl 2% Viscous 15 Ml Udcup Administered 02/06/23 22:40 Dose 15 ml .ROUTE .STK-MED ONE Magnesium Hydroxide 45 ml 02/06/23 22:13 02/06/23 22:42 Mag Hydrx/Alum Hyd/Simeth/Lido 45 Ml Bottle PO 02/06/23 22:14 45 ml STAT ONE Administration Ondansetron HCl 4 mg 02/06/23 20:27 02/06/23 21:00 Ondansetron Hcl 4 Mg/2 Ml Vial IV 02/06/23 20:28 4 mg STAT ONE Administration Ondansetron HCl Confirm 02/06/23 20:57 Ondansetron Hcl 4 Mg/2 Ml Vial Administered 02/06/23 20:58 Dose 4 mg .ROUTE .STK-MED ONE Pantoprazole Sodium 40 mg 02/06/23 20:27 02/06/23 20:59 Pantoprazole 40 Mg Vial IV 02/06/23 20:28 40 mg STAT ONE Administration Pantoprazole Sodium Confirm 02/06/23 20:57 Pantoprazole 40 Mg Vial Administered 02/06/23 20:58 Dose 40 mg IV .STK-MED ONE Lab/Rad Data: Laboratory Result Diagrams 02/06/23 20:30 02/06/23 20:30 Laboratory Results 02/06/23 02/06/23 02/06/23 Range/Units 22:08 20:30 20:30 WBC (4.0-10.5) x10^3/uL RBC (4.1-5.4) x10^6/uL Hgb (12.0-16.0) g/dL Hct (35-47) % MCV (78-100) fL MCH (26-32) pg MCHC (32-36) g/dL RDW (11.5-14.0) % Plt Count (150-450) x10^3/uL MPV (7.5-11.0) fL Gran % (36.0-66.0) % Immature Gran % (Auto) (0.00-0.4) % Nucleat RBC Rel Count (0.00-0.1) % Eos # (Auto) (0-0.5) x10^3/uL Immature Gran # (Auto) (0.00-0.03) x10^3u/L Absolute Lymphs (auto) (1.0-4.6) x10^3/uL Absolute Monos (auto) (0.0-1.3) x10^3/uL Absolute Nucleated RBC (0.00-0.01) x10^3u/L Lymphocytes % (24.0-44.0) % Monocytes % (0.0-12.0) % Eosinophils % (0.00-5.0) % Basophils % (0.0-0.4) % Absolute Granulocytes (1.4-6.9) x10^3/uL Basophils # (0-0.4) x10^3/uL Sodium 141 (137-145) mmol/L Potassium 3.7 (3.5-5.1) mmol/L Chloride 112 H (98-107) mmol/L Carbon Dioxide 19 L (22-30) mmol/L Anion Gap 14.2 (5-15) MEQ/L BUN 8 (7-17) mg/dL Creatinine 0.54 (0.52-1.04) mg/dL Estimated GFR > 60.0 ML/MIN Glucose 68 L (74-106) mg/dL Calcium 9.1 (8.4-10.2) mg/dL Total Bilirubin 0.40 (0.2-1.3) mg/dL AST 26 (14-36) U/L ALT 18 (0-35) U/L Alkaline Phosphatase 78 (38-126) U/L Troponin I < 0.012 (0.000-0.034) ng/mL Serum Total Protein 7.9 (6.3-8.2) g/dL Albumin 4.3 (3.5-5.0) g/dL Amylase 111 H (30-110) U/L Lipase 230 (23-300) U/L Urine Color Yellow (Yellow) Urine Appearance Clear (Clear) Urine pH 6.0 (4.6-8.0) Ur Specific [place] 1.015 (1.005-1.030) Urine Protein Negative (Negative) Urine Glucose (UA) Negative (Negative) mg/dL Urine Ketones Negative (Negative) Urine Blood Large A (Negative) Urine Nitrite Negative (Negative) Urine Bilirubin Negative (Negative) Urine Urobilinogen 1.0 A (0.2) mg/dL Ur Leukocyte Esterase Trace A (Negative) U Hyaline Cast (Auto) NONE SEEN (0-2) /LPF Urine Microscopic RBC 51-100 A (0-5) /HPF Urine Microscopic WBC 0-2 (0-5) /HPF Ur Epithelial Cells None Seen (None Seen) /HPF Urine Bacteria None Seen (None Seen) /HPF Urine Culture Reflexed NO (NO) 02/06/23 Range/Units 20:30 WBC 8.2 (4.0-10.5) x10^3/uL RBC 4.96 (4.1-5.4) x10^6/uL Hgb 11.4 L (12.0-16.0) g/dL Hct 38.2 (35-47) % MCV 77.0 L (78-100) fL MCH 23.0 L (26-32) pg MCHC 29.8 L (32-36) g/dL RDW 16.0 H (11.5-14.0) % Plt Count 282 (150-450) x10^3/uL MPV 10.9 (7.5-11.0) fL Gran % 61.8 (36.0-66.0) % Immature Gran % (Auto) 0.1 (0.00-0.4) % Nucleat RBC Rel Count 0.0 (0.00-0.1) % Eos # (Auto) 0.26 (0-0.5) x10^3/uL Immature Gran # (Auto) 0.01 (0.00-0.03) x10^3u/L Absolute Lymphs (auto) 2.35 (1.0-4.6) x10^3/uL Absolute Monos (auto) 0.50 (0.0-1.3) x10^3/uL Absolute Nucleated RBC 0.00 (0.00-0.01) x10^3u/L Lymphocytes % 28.6 (24.0-44.0) % Monocytes % 6.1 (0.0-12.0) % Eosinophils % 3.2 (0.00-5.0) % Basophils % 0.2 (0.0-0.4) % Absolute Granulocytes 5.07 (1.4-6.9) x10^3/uL Basophils # 0.02 (0-0.4) x10^3/uL Sodium (137-145) mmol/L Potassium (3.5-5.1) mmol/L Chloride (98-107) mmol/L Carbon Dioxide (22-30) mmol/L Anion Gap (5-15) MEQ/L BUN (7-17) mg/dL Creatinine (0.52-1.04) mg/dL Estimated GFR ML/MIN Glucose (74-106) mg/dL Calcium (8.4-10.2) mg/dL Total Bilirubin (0.2-1.3) mg/dL AST (14-36) U/L ALT (0-35) U/L Alkaline Phosphatase (38-126) U/L Troponin I (0.000-0.034) ng/mL Serum Total Protein (6.3-8.2) g/dL Albumin (3.5-5.0) g/dL Amylase (30-110) U/L Lipase (23-300) U/L Urine Color (Yellow) Urine Appearance (Clear) Urine pH (4.6-8.0) Ur Specific [place] (1.005-1.030) Urine Protein (Negative) Urine Glucose (UA) (Negative) mg/dL Urine Ketones (Negative) Urine Blood (Negative) Urine Nitrite (Negative) Urine Bilirubin (Negative) Urine Urobilinogen (0.2) mg/dL Ur Leukocyte Esterase (Negative) U Hyaline Cast (Auto) (0-2) /LPF Urine Microscopic RBC (0-5) /HPF Urine Microscopic WBC (0-5) /HPF Ur Epithelial Cells (None Seen) /HPF Urine Bacteria (None Seen) /HPF Urine Culture Reflexed (NO) - Progress Progress: improved, pain not gone completely, re-examined Progress Note: 02/06/23 22:47 This patient's medical issue is 1 of moderate complexity. The level of complexity and the work-up performed is based on the review of the patient's past medical history, medication list review, review of the patient's drug allergies, history present illness and physical findings on examination. The work-up in this patient includes twelve-lead EKG, troponin level, urinalysis, CBC, CMP, amylase and lipase levels, CAT scan of the abdomen pelvis without contrast. I reviewed the results of the above studies. The CAT scan of the abdomen pelvis was interpreted by the radiologist and I reviewed the impression. There are no significant acute abnormality detected in the abdomen or the pelvis on the study. There are stable findings were compared to a prior CAT scan of the abdomen pelvis. 02/06/23 23:01 The patient said the GI cocktail helped significantly. Also, the patient was found to have a blood sugar of 68. This is slightly low. She stated that she did feel little shaky and we will provide her with a meal to raise her blood sugar before she is discharged to home. She is to follow-up with her surgeon by phone on 02/09/2023 for further evaluation management. Counseled pt/family regarding: lab results, diagnosis, need for follow-up, rad results Medical Desision Making - Diagnostic Testing Diagnostic test were ordered, analyzed, and reviewed by me: Yes Radiological Interpretation: Reviewed by me, Teleradiologist Report - Risk of complications Low Risk: Low risk of morbidity from additional dx testing or treatment - Departure Departure Disposition: Home Clinical Impression: Abdominal pain, Hypoglycemia Condition: Stable Critical Care Time: No Referrals: GELY VALDEZ, [employer]ED INCOME [employer] MANAGER [Primary Care Provider] - Follow up/PCP as directed Additional Instructions: Drink plenty of fluids. Avoid fatty greasy spicy foods. Monitor your blood sugar closely. Call your gastric bypass surgeon on 02/09/2023 for further evaluation and management.
[2023-02-06 20:13] VITALS: O2SAT 100
[2023-02-06] MEDS ORDERED: Hydromorphone 1 mg/ml Injection IV ONE ×2 (20:27→21:41)
[2023-02-06] MEDS ORDERED: PROTONIX 40 MG IV IV ONE ×2 (20:27→20:57)
[2023-02-06] MEDS ORDERED: Zofran 4 MG/2 ML VIAL IV ONE (20:27)
[2023-02-06] MEDS ORDERED: Sodium Chloride 0.9% 1000 ML 1,000 ML IV STA (20:27)
[2023-02-06 20:40] LABS: Absolute Neutrophil Ct (ANC) 5.07 x10^3/uL (1.4-6.9); BASOPHIL % 0.2 % (0.0-0.4); Basophil (Absolute #) 0.02 x10^3/uL (0-0.4); Eosinophil % 3.2 % (0.00-5.0); Eosinophil (Absolute #) 0.26 x10^3/uL (0-0.5); Hematocrit 38.2 % (35-47); Hemoglobin 11.4 g/dL (12.0-16.0); IMMATURE GRAN # 0.01 x10^3u/L (0.00-0.03); IMMATURE GRAN % 0.1 % (0.00-0.4); Lymphocyte (Absolute #) 2.35 x10^3/uL (1.0-4.6); Lymphocytes % 28.6 % (24.0-44.0); Mean Corpuscular Hgb Concent. 29.8 g/dL (32-36); Mean Platelet Volume 10.9 fL (7.5-11.0); Monocytes % 6.1 % (0.0-12.0); Neutrophil % 61.8 % (36.0-66.0); Platelet Count 282 x10^3/uL (150-450); Red Blood Count 4.96 x10^6/uL (4.1-5.4); White Blood Count 8.2 x10^3/uL (4.0-10.5)
[2023-02-06 20:52] LABS: ALBUMIN 4.3 g/dL (3.5-5.0); ALKALINE PHOSPHATASE 78 U/L (38-126); AMYLASE 111 U/L (30-110); ANION GAP 14.2 MEQ/L (5-15); BLOOD UREA NITROGEN 8 mg/dL (7-17); CHLORIDE 112 mmol/L (98-107); Calcium 9.1 mg/dL (8.4-10.2); Carbon Dioxide 19 mmol/L (22-30); Creatinine 1 0.54 mg/dL (0.52-1.04); EST GLOMERULAR FILTRATION RATE > 60.0 ML/MIN; Glucose 68 mg/dL (74-106); LIPASE 230 U/L (23-300); Potassium 3.7 mmol/L (3.5-5.1); SGOT/AST 26 U/L (14-36); SGPT/ALT 18 U/L (0-35); SODIUM 141 mmol/L (137-145); Total Protein 7.9 g/dL (6.3-8.2)
[2023-02-06] MEDS ORDERED: Hydromorphone 1 mg/ml Injection ONE ×2 (20:57→21:51)
[2023-02-06] MEDS ORDERED: Sodium Chloride 0.9% 1000 ML 1,000 ML ONE (20:57)
[2023-02-06] MEDS ORDERED: Zofran 4 MG/2 ML VIAL ONE (20:57)
--- NOTE | 2023-02-06 22:04 | XRAY ---
CLINICAL HISTORY:Epigastric abdominal pain; COMPARISON:08/01/2022; TECHNIQUES:CT scan of the abdomen and pelvis was performed without IV contrast. Coronal and sagittal reconstructive images were also obtained; FINDINGS: Abdomen. The liver is of average size. No focal or diffuse parenchymal abnormality. The intrahepatic biliary radicals and the bile ducts are normal. The spleen, pancreas, and adrenal glands are unremarkable. Splenunculi noted. The kidneys are unremarkable. They are normal in size and shape. No calculi or hydronephrosis. The gallbladder is surgically removed. The ascending colon, the transverse colon, and the descending colon visualized small bowel loops are unremarkable. Postoperative changes were seen in the stomach. There is no evidence of significant enlargement of the mesenteric or retroperitoneal lymph nodes. Pelvis. The urinary bladder is unremarkable. The rectosigmoid colon is unremarkable. The uterus and adnexa appear unremarkable. No evidence of pelvic lymphadenopathy. The note is made of bilateral chronic sacroiliitis. IMPRESSION: No significant acute abnormality was detected in the abdomen and pelvis. Stable findings when compared with the prior study. Electronically Signed by: Shiela Vickers MD. (02/06/2023 20:58:45 SAT INSTRUCTOR)
[2023-02-06] MEDS ORDERED: GI COCKTAIL 45 ML (Maalox/Lidocaine) PO ONE (22:13)
[2023-02-06 22:38] LABS: Appearance Clear (Clear); Bacteria None Seen /HPF (None Seen); Bilirubin Negative (Negative); Blood Large (Negative); Epithelial Cells None Seen /HPF (None Seen); Glucose, Urine Negative (Negative); Hyaline Casts NONE SEEN /LPF (0-2); Ketones Negative (Negative); Leukocyte Esterase Trace (Negative); Nitrite Negative (Negative); Protein,Urine Dip Negative (Negative); RBC 51-100 /HPF (0-5); Specific Gravity 1.015 (1.005-1.030); WBC 0-2 /HPF (0-5)
[2023-02-06 22:39] LABS: ADD URINE CULTURE? NO (NO)
[2023-02-06] MEDS ORDERED: MAALOX ES 30 ML UNIT DOSE ONE (22:39)
[2023-02-06] MEDS ORDERED: XYLOCAINE VISCOUS 2% 15 ML CUP ONE (22:39)
[2023-02-06] MEDS ORDERED: NORCO 5/325 MG PO ONE (22:49)
[2023-02-06] MEDS ORDERED: NORCO 5/325 MG ONE (23:27)
[2023-02-06 23:38] VITALS: BP 122/75; PULSE 72
== END 2023-02-06 23:37 | disposition home or self-care (01) ==
LOC: ED 19:46
DX: R10.10 Upper abdominal pain, unspecified (principal); E16.2 Hypoglycemia, unspecified; I10 Essential (primary) hypertension; Z79.899 Other long term (current) drug therapy
CPT/HCPCS: 36000; 36415; 74176; 80053; 81001; 82150; 82947; 83690; 84484; 85025; 93005; 96360; 96374; 96375; 96376; 99284; J1170; J2405; A9270-GY

== ENCOUNTER 2023-09-02 09:46 | Emergency (ER) | payer OTHER ==
[2023-09-02 10:44] VITALS: RESP 18; TEMP 98.5; O2SAT 100
--- NOTE | 2023-09-02 10:44 | ERPHSYRPT ---
- History of Present Illness Time Seen by Provider: 09/02/23 10:44 Source: patient Exam Limitations: no limitations Physician History: This is an overweight 37-year-old white female patient of nurse practitioner Gely Valdez who presents to the emergency room 24 hours after she first experienced generalized joint pain that she describes as sharp and burning. She states that her joints would feel better if they could just be "popped" into place. 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 She has been undergoing iron infusion treatments since she was found to be anemic with a hemoglobin in the 8 range since August 11, 2022. She does not have specific chest pain or shortness of breath at this time. She states she always has abdominal pain and it is not different. Patient states her joint pain/complaints began yesterday morning but she needed to go into work so she went into work. She was told by her medical provider to come in yesterday but she did not. She did not want to miss work. Patient has a history of hypertens ion, arrhythmias, anxiety, depression and hypothyroidism. Timing/Duration: yesterday Severity: mild (Moderate) Associated Symptoms: denies symptoms Allergies/Adverse Reactions: promethazine [From Phenergan] Allergy (Verified 09/02/23 10:34) site reaction red, swelling prochlorperazine [From Compazine] Adverse Reaction (Verified 09/02/23 10:34) panic attack Home Medications: Ondansetron [Ondansetron Odt ] 4 mg PO Q6H PRN 05/13/22 [History] Metoprolol Succinate 50 mg [Toprol Xl 50 MG] 50 mg PO BID 02/06/23 [History] Levothyroxine Sodium 25 Mcg [Synthroid 25 Mcg] 1 tab PO DAILY 09/02/23 [History] Hx Tetanus, Diphtheria Vaccination/Date Given: Yes Hx Influenza Vaccination/Date Given: No Hx Pneumococcal Vaccination/Date Given: No Travel Risk - International Travel Have you traveled outside of the country in past 3 weeks: No - Coronavirus Screening Are you exhibiting any of the following symptoms?: No Close contact with a COVID-19 positive Pt in past 14-21 Days: No - Vaccine Status Have you recieved a Covid-19 vaccination: Yes Institutional Commodity Analyst: Moderna - Vaccination Dates Date of 2cond Vaccination (if applicable): 2020 - Review of Systems Constitutional: No Symptoms Eyes: No Symptoms Ears, Nose, & Throat: No Symptoms Respiratory: No Symptoms Cardiac: No Symptoms Abdominal/Gastrointestinal: No Symptoms Genitourinary Symptoms: No Symptoms Musculoskeletal: Arthralgias, Myalgias Skin: No Symptoms Neurological: No Symptoms Psychological: No Symptoms Endocrine: No Symptoms Hematologic/Lymphatic: No Symptoms Immunological/Allergic: No Symptoms All Other Systems: Reviewed and Negative - Past Medical History Pertinent Past Medical History: Yes Neurological History: No Pertinent History ENT History: No Pertinent History Cardiac History: Arrhythmia, Hypertension Respiratory History: No Pertinent History Endocrine Medical History: No Pertinent History Musculoskeletal History: No Pertinent History GI Medical History: No Pertinent History History: No Pertinent History Psycho-Social History: Anxiety, Depression Female Reproductive Disorders: No Pertinent History Other Medical History: cardio [facility] states "heart arrythmia" - Past Surgical History Past Surgical History: Yes Neuro Surgical History: Other Cardiac: No Pertinent History Respiratory: No Pertinent History Gastrointestinal: Cholecystectomy Genitourinary: No Pertinent History Musculoskeletal: No Pertinent History Female Surgical History: Tubal Ligation Other Surgical History: sinus surgery 2001, craniotomy 2019, gastric bypass - Social History Smoking Status: Former smoker How long have you smoked: 3 mos Exposure to second hand smoke: No Drug Use: none Patient Lives Alone: No - Nursing Vital Signs Nursing Vital Signs: Initial Vital Signs Blood Pressure 124/69 09/02/23 10:34 O2 Sat by Pulse Oximetry 100 09/02/23 10:34 Pain Scale Pain Intensity [All joints] 10 Pain Intensity 10 - Physical Exam General Appearance: no apparent distress, alert, anxiety, obese Eye Exam: PERRL/EOMI, eyes nml inspection Ears, Nose, Throat Exam: normal ENT inspection, moist mucous membranes Neck Exam: normal inspection, non-tender, supple, full range of motion Respiratory Exam: normal breath sounds, lungs clear, airway intact, No chest tenderness, No respiratory distress Cardiovascular Exam: regular rate/rhythm, normal heart sounds, normal peripheral pulses Gastrointestinal/Abdomen Exam: soft, normal bowel sounds, No tenderness Pelvic Exam: not done Rectal Exam: not done Back Exam: normal inspection, normal range of motion, No CVA tenderness Extremity Exam: normal inspection, normal range of motion, pelvis stable Neurologic Exam: alert, oriented x 3, cooperative, spanish professor II-XII nml as tested, normal mood/affect, nml cerebellar function, nml station & gait, sensation nml Skin Exam: normal color, warm, dry Lymphatic Exam: No adenopathy SpO2 Interpretation: normal O2 Delivery: Room Air Ordered Tests: Active Orders 24 hr Category Date Time Status IV Insertion STAT Care 09/02/23 11:02 Active CBC W DIFF Stat Lab 09/02/23 11:45 Completed CMP Stat Lab 09/02/23 11:45 Completed ESR [Erythrocyte Sedimentation Rate] Stat Lab 09/02/23 11:45 Completed Lactic Acid Stat Lab 09/02/23 11:45 Completed MAG [MAGNESIUM] Stat Lab 09/02/23 11:45 Completed TSH [TSH, 3RD Generation] Stat Lab 09/02/23 11:45 Received UA W/RFX UR CULTURE Stat Lab 09/02/23 11:20 Completed Medication Summary Discontinued Medications Generic Name Dose Route Start Last Admin Trade Name Freq PRN Reason Stop Dose Admin Methylprednisolone Sodium 0 mg 09/02/23 11:04 09/02/23 12:15 Succinate 125 mg/ Sterile IV 09/02/23 11:05 Not Given Water 2 ml STAT ONE Methylprednisolone Sodium 0 mg 09/02/23 12:15 09/02/23 13:12 Succinate 125 mg/ Sterile IM 09/02/23 12:16 125 mg Water 2 ml STAT ONE Administration Hydromorphone HCl 1 mg 09/02/23 11:04 09/02/23 13:04 Hydromorphone 1 Mg/1ml Inj IV 09/02/23 11:05 Not Given STAT ONE Hydromorphone HCl 1 mg 09/02/23 12:23 09/02/23 13:09 Hydromorphone 1 Mg/1ml Inj IM 09/02/23 12:24 1 mg STAT ONE Administration Hydromorphone HCl Confirm 09/02/23 13:06 Hydromorphone 1 Mg/1ml Inj Administered 09/02/23 13:07 Dose 1 mg .ROUTE .STK-MED ONE Methylprednisolone Sodium Succinate Confirm 09/02/23 13:07 Methylprednis Sod Succ 125 Mg/2 Ml Vial Administered 09/02/23 13:08 Dose 125 mg .ROUTE .STK-MED ONE Ondansetron HCl 4 mg 09/02/23 11:04 09/02/23 12:15 Ondansetron Hcl 4 Mg/2 Ml Vial IV 09/02/23 11:05 Not Given STAT ONE Ondansetron HCl 4 mg 09/02/23 12:18 09/02/23 13:08 Zofran 4 Mg/Udtablet Orally Disintegrating PO 09/02/23 12:19 4 mg STAT ONE Administration Ondansetron HCl Confirm 09/02/23 13:06 Zofran 4 Mg/Udtablet Orally Disintegrating Administered 09/02/23 13:07 Dose 4 mg .ROUTE .[facility] ONE Sterile Water Confirm 09/02/23 13:06 Water For Injection,Sterile 10 Ml Vial Administered 09/02/23 13:07 Dose 10 ml IJ .[facility] ONE Lab/Rad Data: Laboratory Result Diagrams 09/02/23 11:45 09/02/23 11:45 Laboratory Results 09/02/23 09/02/23 09/02/23 Range/Units Unknown Unknown 11:45 WBC (4.0-10.5) x10^3/uL RBC (4.1-5.4) x10^6/uL Hgb (12.0-16.0) g/dL Hct (35-47) % MCV (78-100) fL MCH (26-32) pg MCHC (32-36) g/dL RDW (11.5-14.0) % Plt Count (150-450) x10^3/uL MPV (7.5-11.0) fL Gran % (36.0-66.0) % Immature Gran % (Auto) (0.00-0.4) % Nucleat RBC Rel Count (0.00-0.1) % Eos # (Auto) (0-0.5) x10^3/uL Immature Gran # (Auto) (0.00-0.03) x10^3u/L Absolute Lymphs (auto) (1.0-4.6) x10^3/uL Absolute Monos (auto) (0.0-1.3) x10^3/uL Absolute Nucleated RBC (0.00-0.01) x10^3u/L Lymphocytes % (24.0-44.0) % Monocytes % (0.0-12.0) % Eosinophils % (0.00-5.0) % Basophils % (0.0-0.4) % Absolute Granulocytes (1.4-6.9) x10^3/uL Basophils # (0-0.4) x10^3/uL ESR 4 (0-20) mm/hr Sodium (137-145) mmol/L Potassium (3.5-5.1) mmol/L Chloride (98-107) mmol/L Carbon Dioxide (22-30) mmol/L Anion Gap (5-15) MEQ/L BUN (7-17) mg/dL Creatinine (0.52-1.04) mg/dL Estimated GFR ML/MIN Glucose (74-106) mg/dL Lactic Acid (0.4-2.0) Calcium (8.4-10.2) mg/dL Magnesium (1.6-2.3) mg/dL Total Bilirubin (0.2-1.3) mg/dL AST (14-36) U/L ALT (0-35) U/L Alkaline Phosphatase (38-126) U/L Serum Total Protein (6.3-8.2) g/dL Albumin (3.5-5.0) g/dL Free T4 1.15 (0.78-2.19) ng/dL Urine Color (Yellow) Urine Appearance (Clear) Urine pH (4.6-8.0) Ur Specific [place] (1.005-1.030) Urine Protein (Negative) Urine Glucose (UA) (Negative) mg/dL Urine Ketones (Negative) Urine Blood (Negative) Urine Nitrite (Negative) Urine Bilirubin (Negative) Urine Urobilinogen (0.2) mg/dL Ur Leukocyte Esterase (Negative) U Hyaline Cast (Auto) (0-2) /LPF Urine Microscopic RBC (0-5) /HPF Urine Microscopic WBC (0-5) /HPF Ur Epithelial Cells (None Seen) /HPF Urine Bacteria (None Seen) /HPF Urine Culture Reflexed (NO) Influenza Type A Ag NEGATIVE (NEGATIVE) Influenza Type B Ag NEGATIVE (NEGATIVE) RSV (PCR) NEGATIVE (NEGATIVE) SARS-CoV-2 (PCR) NEGATIVE (NEGATIVE) 09/02/23 09/02/23 09/02/23 Range/Units 11:45 11:45 11:45 WBC (4.0-10.5) x10^3/uL RBC (4.1-5.4) x10^6/uL Hgb (12.0-16.0) g/dL Hct (35-47) % MCV (78-100) fL MCH (26-32) pg MCHC (32-36) g/dL RDW (11.5-14.0) % Plt Count (150-450) x10^3/uL MPV (7.5-11.0) fL Gran % (36.0-66.0) % Immature Gran % (Auto) (0.00-0.4) % Nucleat RBC Rel Count (0.00-0.1) % Eos # (Auto) (0-0.5) x10^3/uL Immature Gran # (Auto) (0.00-0.03) x10^3u/L Absolute Lymphs (auto) (1.0-4.6) x10^3/uL Absolute Monos (auto) (0.0-1.3) x10^3/uL Absolute Nucleated RBC (0.00-0.01) x10^3u/L Lymphocytes % (24.0-44.0) % Monocytes % (0.0-12.0) % Eosinophils % (0.00-5.0) % Basophils % (0.0-0.4) % Absolute Granulocytes (1.4-6.9) x10^3/uL Basophils # (0-0.4) x10^3/uL ESR (0-20) mm/hr Sodium 136 L (137-145) mmol/L Potassium 4.0 (3.5-5.1) mmol/L Chloride 110 H (98-107) mmol/L Carbon Dioxide 21 L (22-30) mmol/L Anion Gap 8.5 (5-15) MEQ/L BUN 8 (7-17) mg/dL Creatinine 0.63 (0.52-1.04) mg/dL Estimated GFR 117.8 ML/MIN Glucose 98 (74-106) mg/dL Lactic Acid 0.9 (0.4-2.0) Calcium 8.8 (8.4-10.2) mg/dL Magnesium 2.0 (1.6-2.3) mg/dL Total Bilirubin 0.50 (0.2-1.3) mg/dL AST 28 (14-36) U/L ALT 24 (0-35) U/L Alkaline Phosphatase 81 (38-126) U/L Serum Total Protein 6.8 (6.3-8.2) g/dL Albumin 3.9 (3.5-5.0) g/dL Free T4 (0.78-2.19) ng/dL Urine Color (Yellow) Urine Appearance (Clear) Urine pH (4.6-8.0) Ur Specific [place] (1.005-1.030) Urine Protein (Negative) Urine Glucose (UA) (Negative) mg/dL Urine Ketones (Negative) Urine Blood (Negative) Urine Nitrite (Negative) Urine Bilirubin (Negative) Urine Urobilinogen (0.2) mg/dL Ur Leukocyte Esterase (Negative) U Hyaline Cast (Auto) (0-2) /LPF Urine Microscopic RBC (0-5) /HPF Urine Microscopic WBC (0-5) /HPF Ur Epithelial Cells (None Seen) /HPF Urine Bacteria (None Seen) /HPF Urine Culture Reflexed (NO) Influenza Type A Ag (NEGATIVE) Influenza Type B Ag (NEGATIVE) RSV (PCR) (NEGATIVE) SARS-CoV-2 (PCR) (NEGATIVE) 09/02/23 09/02/23 Range/Units 11:45 11:20 WBC 5.5 (4.0-10.5) x10^3/uL RBC 4.62 (4.1-5.4) x10^6/uL Hgb 10.1 L (12.0-16.0) g/dL Hct 36.5 (35-47) % MCV 79.0 (78-100) fL MCH 21.9 L (26-32) pg MCHC 27.7 L (32-36) g/dL RDW 26.5 H (11.5-14.0) % Plt Count 283 (150-450) x10^3/uL MPV 10.3 (7.5-11.0) fL Gran % 52.6 (36.0-66.0) % Immature Gran % (Auto) 0.2 (0.00-0.4) % Nucleat RBC Rel Count 0.0 (0.00-0.1) % Eos # (Auto) 0.49 (0-0.5) x10^3/uL Immature Gran # (Auto) 0.01 (0.00-0.03) x10^3u/L Absolute Lymphs (auto) 1.83 (1.0-4.6) x10^3/uL Absolute Monos (auto) 0.25 (0.0-1.3) x10^3/uL Absolute Nucleated RBC 0.00 (0.00-0.01) x10^3u/L Lymphocytes % 33.0 (24.0-44.0) % Monocytes % 4.5 (0.0-12.0) % Eosinophils % 8.8 H (0.00-5.0) % Basophils % 0.9 (0.0-0.4) % Absolute Granulocytes 2.91 (1.4-6.9) x10^3/uL Basophils # 0.05 (0-0.4) x10^3/uL ESR (0-20) mm/hr Sodium (137-145) mmol/L Potassium (3.5-5.1) mmol/L Chloride (98-107) mmol/L Carbon Dioxide (22-30) mmol/L Anion Gap (5-15) MEQ/L BUN (7-17) mg/dL Creatinine (0.52-1.04) mg/dL Estimated GFR ML/MIN Glucose (74-106) mg/dL Lactic Acid (0.4-2.0) Calcium (8.4-10.2) mg/dL Magnesium (1.6-2.3) mg/dL Total Bilirubin (0.2-1.3) mg/dL AST (14-36) U/L ALT (0-35) U/L Alkaline Phosphatase (38-126) U/L Serum Total Protein (6.3-8.2) g/dL Albumin (3.5-5.0) g/dL Free T4 (0.78-2.19) ng/dL Urine Color Yellow (Yellow) Urine Appearance Clear (Clear) Urine pH 7.0 (4.6-8.0) Ur Specific [place] 1.010 (1.005-1.030) Urine Protein Negative (Negative) Urine Glucose (UA) Negative (Negative) mg/dL Urine Ketones Negative (Negative) Urine Blood Negative (Negative) Urine Nitrite Negative (Negative) Urine Bilirubin Negative (Negative) Urine Urobilinogen 1.0 A (0.2) mg/dL Ur Leukocyte Esterase Trace A (Negative) U Hyaline Cast (Auto) NONE SEEN (0-2) /LPF Urine Microscopic RBC 0-2 (0-5) /HPF Urine Microscopic WBC 0-2 (0-5) /HPF Ur Epithelial Cells None Seen (None Seen) /HPF Urine Bacteria None Seen (None Seen) /HPF Urine Culture Reflexed NO (NO) Influenza Type A Ag (NEGATIVE) Influenza Type B Ag (NEGATIVE) RSV (PCR) (NEGATIVE) SARS-CoV-2 (PCR) (NEGATIVE) - Progress Progress: improved, pain not gone completely, re-examined Progress Note: 09/02/23 11:42 This patient's medical issue is 1 of moderate complexity. The level of complexity in the workup performed is based on review of the patient's past medical history, medication list review, review of the patient's drug allergy list, history present illness and physical findings on examination. Workup i ncludes injection of Dilaudid, Zofran and Solu-Medrol, CBC, CMP, free T4 and TSH, magnesium level, urinalysis, ESR level. 09/02/23 12:35 I interpreted the patient's laboratory data workup. There is no evidence of any acute, emergent medical issue based on today's labs. Patient referred back to her primary care provider and other outpatient specialist. Counseled pt/family regarding: lab results, diagnosis, need for follow-up Medical Desision Making - Diagnostic Testing Diagnostic test were ordered, analyzed, and reviewed by me: Yes - Risk of complications Minimal Risk: Minimal risk of morbidity - Departure Departure Disposition: Home Clinical Impression: Arthralgia Condition: Stable Critical Care Time: No Referrals: GELY VALDEZ GENETIC COORDINATOR [Primary Care Provider] - Follow up/PCP as directed Additional Instructions: Take all your medications as prescribed. Call your primary care provider and specialist today, 09/02/2023, to make arrangements for follow-up appointment in the next 2 to 3 days.
[2023-09-02] MEDS ORDERED: Hydromorphone 1 mg/ml Injection IV ONE (11:04)
[2023-09-02] MEDS ORDERED: solu-MEDROL 125 MG, Sterile H2O 10 ml 2 ML IV ONE ×2 (11:04)
[2023-09-02] MEDS ORDERED: Zofran 4 MG/2 ML VIAL IV ONE (11:04)
[2023-09-02 12:01] LABS: Appearance Clear (Clear); Bacteria None Seen /HPF (None Seen); Bilirubin Negative (Negative); Blood Negative (Negative); Epithelial Cells None Seen /HPF (None Seen); Glucose, Urine Negative (Negative); Hyaline Casts NONE SEEN /LPF (0-2); Ketones Negative (Negative); Leukocyte Esterase Trace (Negative); Nitrite Negative (Negative); Protein,Urine Dip Negative (Negative); RBC 0-2 /HPF (0-5); WBC 0-2 /HPF (0-5)
[2023-09-02 12:01] LABS: Absolute Neutrophil Ct (ANC) 2.91 x10^3/uL (1.4-6.9); BASOPHIL % 0.9 % (0.0-0.4); Basophil (Absolute #) 0.05 x10^3/uL (0-0.4); Eosinophil % 8.8 % (0.00-5.0); Eosinophil (Absolute #) 0.49 x10^3/uL (0-0.5); Hematocrit 36.5 % (35-47); Hemoglobin 10.1 g/dL (12.0-16.0); IMMATURE GRAN # 0.01 x10^3u/L (0.00-0.03); IMMATURE GRAN % 0.2 % (0.00-0.4); Lymphocyte (Absolute #) 1.83 x10^3/uL (1.0-4.6); Mean Corpuscular Hemoglobin 21.9 pg (26-32); Mean Corpuscular Hgb Concent. 27.7 g/dL (32-36); Mean Platelet Volume 10.3 fL (7.5-11.0); Monocyte (Absolute #) 0.25 x10^3/uL (0.0-1.3); Monocytes % 4.5 % (0.0-12.0); Neutrophil % 52.6 % (36.0-66.0); Platelet Count 283 x10^3/uL (150-450); Red Blood Count 4.62 x10^6/uL (4.1-5.4); Red Cell Distribution Width 26.5 % (11.5-14.0); White Blood Count 5.5 x10^3/uL (4.0-10.5)
[2023-09-02 12:07] LABS: ALBUMIN 3.9 g/dL (3.5-5.0); ANION GAP 8.5 MEQ/L (5-15); BILIRUBIN,TOTAL 0.5 mg/dL (0.2-1.3); Calcium 8.8 mg/dL (8.4-10.2); Creatinine 1 0.63 mg/dL (0.52-1.04); EST GLOMERULAR FILTRATION RATE 117.8 ML/MIN; Total Protein 6.8 g/dL (6.3-8.2)
[2023-09-02] MEDS ORDERED: solu-MEDROL 125 MG, Sterile H2O 10 ml 2 ML IM ONE ×2 (12:15)
[2023-09-02] MEDS ORDERED: ZOFRAN ODT 4 MG PO ONE ×2 (12:18→13:23)
[2023-09-02] MEDS ORDERED: Hydromorphone 1 mg/ml Injection IM ONE ×2 (12:23→13:30)
[2023-09-02 12:27] LABS: ADD URINE CULTURE? NO (NO)
[2023-09-02 12:37] LABS: INFLUENZA A NEGATIVE (NEGATIVE); INFLUENZA B NEGATIVE (NEGATIVE); RESPIRATORY SYNCTIAL VIRUS NEGATIVE (NEGATIVE); SARS-CoV-2 Xpert Express NEGATIVE (NEGATIVE)
[2023-09-02] MEDS ORDERED: Sterile H2O 10 ml IJ ONE (13:06)
[2023-09-02] MEDS ORDERED: Hydromorphone 1 mg/ml Injection ONE ×2 (13:06→13:39)
[2023-09-02] MEDS ORDERED: ZOFRAN ODT 4 MG ONE ×2 (13:06→13:24)
[2023-09-02] MEDS ORDERED: solu-MEDROL ONE (13:07)
[2023-09-02 13:21] VITALS: BP 102/73; PULSE 65
[2023-09-02 15:05] LABS: Slide Review 1 YES
== END 2023-09-02 14:06 | disposition home or self-care (01) ==
LOC: ED 09:46
DX: M25.50 Pain in unspecified joint (principal); I10 Essential (primary) hypertension; Z79.899 Other long term (current) drug therapy
CPT/HCPCS: 0241U; 36415; 80053; 81001; 83605; 83735; 84439; 84443; 85025; 85652; 96372; 99284; J1170; J2930; Q0162

== ENCOUNTER 2024-09-18 13:21 | Emergency (ER) | payer OTHER ==
[2024-09-18 13:37] VITALS: TEMP 97.6
--- NOTE | 2024-09-18 14:06 | ERPHSYRPT ---
- History of Present Illness Time Seen by Provider: 09/18/24 13:50 Source: patient Exam Limitations: no limitations Patient Subjective Stated Complaint: pt here for vaginal bleeding after a edometrial bx thursday, she states she is on her period but is bleeding heavy with clots .co abd pain to right side Triage Nursing Assessment: pt alert, walked in, resp easy, skin w/d/p. moves all ext well, states going through a pad an hour Physician History: 38-year-old female presents to our ED for evaluation of vaginal bleeding. Patient reports that she had an ultrasound in August. The ultrasound showed thickened endometrial lining with a concerning lesion. Patient had an endometrial biopsy performed at [facility] Thursday 2 days ago. Since then patient has been experiencing vaginal bleeding. Patient states she is passing large clots. Patient called her hub lead who advised her to come to our ED for an evaluation. Additionally patient complains of right pelvic pain. Pain is intermittent. No trauma no fever. Patient complains of mild nausea at this time. Patient is currently on her menstrual cycle. Patient otherwise feels well. She voices no other complaints or concerns at this time. Additionally patient reports that she had a full STI workup in August. Workup was negative. A repeat workup is not indicated at this time Portions of this note were created with voice recognition technology. There may be grammatical, spelling, punctuation or sound alike errors Timing/Duration: day(s) (2 days) Severity: moderate Modifying Factors: Improves With: nothing Associated Symptoms: nausea Allergies/Adverse Reactions: promethazine [From Phenergan] Allergy (Verified 09/18/24 13:34) site reaction red, swelling prochlorperazine [From Compazine] Adverse Reaction (Verified 09/18/24 13:34) panic attack Home Medications: Metoprolol Succinate 50 mg [Toprol Xl 50 MG] 50 mg PO BID 02/06/23 [History] Levothyroxine Sodium 25 Mcg [Synthroid 25 Mcg] 1 tab PO DAILY 09/02/23 [History] Semaglutide [Wegovy] 0.5 mg SQ UD 09/18/24 [History] Hx Tetanus, Diphtheria Vaccination/Date Given: Yes Hx Influenza Vaccination/Date Given: No Hx Pneumococcal Vaccination/Date Given: No Immunizations Up to Date: Yes Travel Risk - International Travel Have you traveled outside of the country in past 3 weeks: No - Emerging Infectious Disease Are you exhibiting symptoms associated with any current EIDs: No - Review of Systems Constitutional: No Symptoms, No Fever, No Chills Eyes: No Symptoms Ears, Nose, & Throat: No Symptoms Respiratory: No Symptoms, No Cough, No Dyspnea Cardiac: No Symptoms, No Chest Pain, No Edema, No Syncope Abdominal/Gastrointestinal: No Symptoms, No Abdominal Pain, No Nausea, No Vomiting, No Diarrhea Genitourinary Symptoms: No Symptoms, No Dysuria Musculoskeletal: No Symptoms, No Back Pain, No Neck Pain Skin: No Symptoms, No Rash Neurological: No Symptoms, No Dizziness, No Focal Weakness, No Sensory Changes Psychological: No Symptoms Endocrine: No Symptoms Hematologic/Lymphatic: No Symptoms Immunological/Allergic: No Symptoms All Other Systems: Reviewed and Negative - Past Medical History Pertinent Past Medical History: Yes Neurological History: No Pertinent History ENT History: No Pertinent History Cardiac History: Arrhythmia, Hypertension Respiratory History: No Pertinent History Endocrine Medical History: No Pertinent History Musculoskeletal History: No Pertinent History GI Medical History: No Pertinent History History: No Pertinent History Psycho-Social History: Anxiety, Depression Female Reproductive Disorders: No Pertinent History Other Medical History: cardio Dr. Toby marcus in hosp. states "heart arrythmia" - Past Surgical History Past Surgical History: Yes Neuro Surgical History: Neurological Surgery, Other Cardiac: No Pertinent History Respiratory: No Pertinent History Gastrointestinal: Cholecystectomy, Hernia Repair Genitourinary: No Pertinent History Musculoskeletal: No Pertinent History Female Surgical History: Tubal Ligation Other Surgical History: sinus surgery 2001, craniotomy 2018, gastric bypass ,hernia 2023 - Female History Hx Last Menstrual Period: now Hx Now: No - Social History Smoking Status: Current every day smoker Exposure to second hand smoke: Yes Drug Use: none - Social Determinants of Health Will the patient participate in the screening: Declined to provide - Nursing Vital Signs Nursing Vital Signs: Initial Vital Signs Blood Pressure 132/94 09/18/24 13:34 Pain Scale Pain Intensity 7 - Physical Exam General Appearance: no apparent distress, alert Eye Exam: PERRL/EOMI, eyes nml inspection Ears, Nose, Throat Exam: normal ENT inspection, moist mucous membranes Neck Exam: normal inspection, non-tender, supple, full range of motion Respiratory Exam: normal breath sounds, lungs clear, airway intact, No respiratory distress Cardiovascular Exam: regular rate/rhythm, normal heart sounds, normal peripheral pulses Gastrointestinal/Abdomen Exam: soft, normal bowel sounds, No tenderness, No mass Pelvic Exam: normal external exam, other (Small clots in vaginal canal. Cervix visualized. No active bleeding), No cervical motion tenderness Back Exam: normal inspection, normal range of motion, No CVA tenderness, No vertebral tenderness Extremity Exam: normal inspection, normal range of motion, pelvis stable Neurologic Exam: alert, oriented x 3, cooperative, normal mood/affect, nml cerebellar function, nml station & gait, sensation nml, No motor deficits Skin Exam: normal color, warm, dry, No rash Lymphatic Exam: No adenopathy SpO2 Interpretation: normal SpO2: 99 O2 Delivery: Room Air - Course Nursing assessment & vital signs reviewed: Yes - Radiology Ultrasound Exam Pelvis Ultrasound: tele radiology report (Negative for torsion. Nabothian cysts) Ordered Tests: Active Orders 24 hr Category Date Time Status Wind Energy Engineer STAT Care 09/18/24 13:53 Active IV Insertion STAT Care 09/18/24 13:52 Active Pulse Oximetry (ED) STAT Care 09/18/24 13:53 Active PELVIC [US] Stat Exams 09/18/24 15:55 Taken CBC W DIFF Stat Lab 09/18/24 14:00 Completed CMP Stat Lab 09/18/24 14:00 Completed CULTURE,URINE Stat Lab 09/18/24 13:58 Received HCG QUALITATIVE, URINE Stat Lab 09/18/24 13:58 Completed PROTIME WITH INR Stat Lab 09/18/24 14:00 Completed PTT Stat Lab 09/18/24 14:00 Completed UA W/RFX UR CULTURE Stat Lab 09/18/24 13:58 Completed Medication Summary Generic Name Dose Route Start Last Admin Trade Name Freq PRN Reason Stop Dose Admin Ceftriaxone Sodium 1 gm in 100 mls @ 200 mls/hr 09/18/24 16:11 Rocephin 1 Gm / 100 Ml Nacl IV 09/18/24 16:40 STAT ONE Discontinued Medications Generic Name Dose Route Start Last Admin Trade Name Freq PRN Reason Stop Dose Admin Sodium Chloride 1,000 mls @ 999 mls/hr 09/18/24 13:52 09/18/24 15:58 Sodium Chloride 0.9% 1000 Ml IV 09/18/24 14:52 Infused .Q1H1M STA Infusion Sodium Chloride Confirm 09/18/24 14:13 Sodium Chloride 0.9% 1000 Ml Administered 09/18/24 14:14 Dose 1,000 mls @ ud .ROUTE .STK-MED ONE Ketorolac Tromethamine 30 mg 09/18/24 13:54 09/18/24 14:18 Ketorolac Tromethamine 30 Mg/Ml Inj IV 09/18/24 13:55 30 mg STAT ONE Administration Ketorolac Tromethamine Confirm 09/18/24 14:13 Ketorolac Tromethamine 30 Mg/Ml Inj Administered 09/18/24 14:14 Dose 30 mg .ROUTE .STK-MED ONE Morphine Sulfate 2 mg 09/18/24 15:51 09/18/24 16:01 Morphine Sulfate 2 Mg/Ml Inj IV 09/18/24 15:52 2 mg STAT ONE Administration Morphine Sulfate Confirm 09/18/24 15:59 Morphine Sulfate 2 Mg/Ml Inj Administered 09/18/24 16:00 Dose 2 mg .ROUTE .STK-MED ONE Ondansetron HCl 4 mg 09/18/24 14:10 09/18/24 14:17 Ondansetron Hcl 4 Mg/2 Ml Vial IV 09/18/24 14:11 4 mg STAT ONE Administration Ondansetron HCl Confirm 09/18/24 14:13 Ondansetron Hcl 4 Mg/2 Ml Vial Administered 09/18/24 14:14 Dose 4 mg .ROUTE .STK-MED ONE Lab/Rad Data: Laboratory Result Diagrams 09/18/24 14:00 09/18/24 14:00 Laboratory Results 09/18/24 09/18/24 09/18/24 Range/Units 14:00 14:00 14:00 WBC 6.9 (3.98-10.04) x10^3/uL RBC 5.08 (3.93-5.22) x10^6/uL Hgb 14.9 (11.2-15.7) g/dL Hct 44.0 (34.1-44.9) % MCV 86.6 (79.4-94.8) fL MCH 29.3 (25.6-32.2) pg MCHC 33.9 (32.2-35.5) g/dL RDW 13.3 (11.7-14.4) % Plt Count 230 (182-369) x10^3/uL MPV 9.7 (9.4-12.3) fL Gran % 58.5 (34.0-71.1) % Immature Gran % (Auto) 0.3 (0.001-0.429) % Nucleat RBC Rel Count 0.0 (0.00-0.2) % Eos # (Auto) 0.32 (0.04-0.36) x10^3/uL Immature Gran # (Auto) 0.02 (0.001-0.031) x10^3u/L Absolute Lymphs (auto) 2.14 (1.18-3.74) x10^3/uL Absolute Monos (auto) 0.34 (0.24-0.86) x10^3/uL Absolute Nucleated RBC 0.00 (0.00-0.012) x10^3u/L Lymphocytes % 31.2 (19.3-51.7) % Monocytes % 5.0 (4.7-12.5) % Eosinophils % 4.7 (0.7-5.8) % Basophils % 0.3 (0.1-1.2) % Absolute Granulocytes 4.02 (1.56-6.13) x10^3/uL Basophils # 0.02 (0.01-0.08) x10^3/uL PT 10.5 (9.4-12.5) SECONDS INR 0.96 (0.8-3.0) APTT 29.1 (25.1-36.5) SECONDS Sodium 139 (135-145) mmol/L Potassium 4.2 (3.5-5.1) mmol/L Chloride 106 (98-107) mmol/L Carbon Dioxide 26 (22-30) mmol/L Anion Gap 12.1 (5-15) MEQ/L BUN 7 (7-17) mg/dL Creatinine 0.61 (0.52-1.04) mg/dL Estimated GFR 118.0 ML/MIN Glucose 95 (74-106) mg/dL Calcium 9.1 (8.4-10.2) mg/dL Total Bilirubin 0.70 (0.2-1.3) mg/dL AST 31 (14-36) U/L ALT 29 (0-35) U/L Alkaline Phosphatase 98 (38-126) U/L Serum Total Protein 7.1 (6.3-8.2) g/dL Albumin 4.4 (3.5-5.0) g/dL Urine Color (Yellow) Urine Appearance (Clear) Urine pH (4.6-8.0) Ur Specific [place] (1.005-1.030) Urine Protein (Negative) Urine Glucose (UA) (Negative) mg/dL Urine Ketones (Negative) Urine Blood (Negative) Urine Nitrite (Negative) Urine Bilirubin (Negative) Urine Urobilinogen (0.2) mg/dL Ur Leukocyte Esterase (Negative) U Hyaline Cast (Auto) (0-2) /LPF Urine Microscopic RBC (0-5) /HPF Urine Microscopic WBC (0-5) /HPF Ur Epithelial Cells (None Seen) /HPF Urine Bacteria (None Seen) /HPF Urine Culture Reflexed (NO) Urine HCG, Qual (NEGATIVE) 09/18/24 09/18/24 Range/Units 13:58 13:58 WBC (3.98-10.04) x10^3/uL RBC (3.93-5.22) x10^6/uL Hgb (11.2-15.7) g/dL Hct (34.1-44.9) % MCV (79.4-94.8) fL MCH (25.6-32.2) pg MCHC (32.2-35.5) g/dL RDW (11.7-14.4) % Plt Count (182-369) x10^3/uL MPV (9.4-12.3) fL Gran % (34.0-71.1) % Immature Gran % (Auto) (0.001-0.429) % Nucleat RBC Rel Count (0.00-0.2) % Eos # (Auto) (0.04-0.36) x10^3/uL Immature Gran # (Auto) (0.001-0.031) x10^3u/L Absolute Lymphs (auto) (1.18-3.74) x10^3/uL Absolute Monos (auto) (0.24-0.86) x10^3/uL Absolute Nucleated RBC (0.00-0.012) x10^3u/L Lymphocytes % (19.3-51.7) % Monocytes % (4.7-12.5) % Eosinophils % (0.7-5.8) % Basophils % (0.1-1.2) % Absolute Granulocytes (1.56-6.13) x10^3/uL Basophils # (0.01-0.08) x10^3/uL PT (9.4-12.5) SECONDS INR (0.8-3.0) APTT (25.1-36.5) SECONDS Sodium (135-145) mmol/L Potassium (3.5-5.1) mmol/L Chloride (98-107) mmol/L Carbon Dioxide (22-30) mmol/L Anion Gap (5-15) MEQ/L BUN (7-17) mg/dL Creatinine (0.52-1.04) mg/dL Estimated GFR ML/MIN Glucose (74-106) mg/dL Calcium (8.4-10.2) mg/dL Total Bilirubin (0.2-1.3) mg/dL AST (14-36) U/L ALT (0-35) U/L Alkaline Phosphatase (38-126) U/L Serum Total Protein (6.3-8.2) g/dL Albumin (3.5-5.0) g/dL Urine Color Dark Yellow A (Yellow) Urine Appearance Cloudy A (Clear) Urine pH 5.5 (4.6-8.0) Ur Specific [place] 1.025 (1.005-1.030) Urine Protein 30 (Negative) Urine Glucose (UA) Negative (Negative) mg/dL Urine Ketones Trace A (Negative) Urine Blood Large A (Negative) Urine Nitrite Negative (Negative) Urine Bilirubin Negative (Negative) Urine Urobilinogen 1.0 A (0.2) mg/dL Ur Leukocyte Esterase Moderate A (Negative) U Hyaline Cast (Auto) NONE SEEN (0-2) /LPF Urine Microscopic RBC >100 A (0-5) /HPF Urine Microscopic WBC >100 A (0-5) /HPF Ur Epithelial Cells Rare (None Seen) /HPF Urine Bacteria None Seen (None Seen) /HPF Urine Culture Reflexed YES (NO) Urine HCG, Qual NEGATIVE (NEGATIVE) - Progress Progress: improved Progress Note: 38-year-old female presents to our ED with vaginal bleeding and right pelvic pain post endometrial biopsy. Pelvic exam showed blood clot in the vaginal vault. Cervix visualized. No active bleeding. Laboratory workup essentially nonremarkable. UA significant for urinary tract infection. Patient received a dose of IV Rocephin. A prescription for Keflex forwarded to patient's pharmacy. Toradol forwarded to patient's pharmacy as well to treat pain. Ultrasound negative for torsion. There is a right ovarian cyst observed at 4.7 cm. Patient reassessed. She is in no active pain. Patient resting comfortably. Significant other at bedside. They voiced no other complaints or concerns at this time. Patient given a referral to see our PUBLIC RECORDS RESEARCHER physician for further treatment and management of her ovarian cyst. Portions of this note were created with voice recognition technology. There may be grammatical, spelling, punctuation or sound alike errors Complexity of problem addressed is moderate acute complicated no critical care time. Complex of data reviewed and analyzed is moderate. Test ordered test reviewed results analyzed and correlated clinically with history and physical exam. Risk of complication and or risk of morbidity/mortality of patient management is moderate. A prescription for Keflex and Toradol forwarded to patient's pharmacy. Vital stable. Time spent to discharge patient is approximately 15 minutes. Plan of care established for shared decision making. No social determinants of health present to impede follow-up. Portions of this note were created with voice recognition technology. There may be grammatical, spelling, punctuation or sound alike errors 09/18/24 16:17 Counseled pt/family regarding: lab results, diagnosis, need for follow-up, rad results - Departure Departure Disposition: Home Clinical Impression: Vaginal bleeding, Nausea, Menses regular with excessive bleeding, UTI (urinary tract infection), Ovarian cyst Condition: Stable Critical Care Time: No Referrals: GELY VALDEZ, HEAD STOCK TRANSFER CLERK [Primary Care Provider] - Follow up/PCP as directed SUAD MOTA DO [ACTIVE STAFF] - Follow up/PCP as directed Additional Instructions: Discharge/Care Plan RON FAGAN was seen on 09/18/24 in the Emergency Room. The patient was counseled regarding Diagnosis,Lab results, Imaging studies, need for follow up and when to return to the Emergency Room. Prescriptions given: Discharge Note I have spoken with the patient and/or caregivers. I have explained the patient's condition, diagnosis and treatment plan based on the information available to me at this time. I have answered the patient's and/or caregiver's questions and ad dressed any concerns. The patient and/or caregivers have as good understanding of the patient's diagnosis, condition and treatment plan as can be expected at this point. The vital signs have been stable. The patient's condition is stable and appropriate for discharge from the emergency department. The patient will pursue further outpatient evaluation with the primary care physician or other designated or consulting physician as outlined in the discharge instructions. The patient and/or caregivers are agreeable to this plan of care and follow-up instructions have been explained in detail. The patient and/or caregivers have received these instruction. The patient/and or caregivers are aware that any significant change in condition or worsening of symptoms should prompt an immediate return to this or the closest emergency department or call 911. Prescriptions: Cephalexin Mh 500 mg [Keflex 500 mg] 500 mg PO TID 7 Days #21 cap Ketorolac Trometh 10 mg Tab [TORAdol 10 MG TABLET] 10 mg PO TID 5 Days #15 tablet
[2024-09-18 14:10] LABS: Absolute Neutrophil Ct (ANC) 4.02 x10^3/uL (1.56-6.13); BASOPHIL % 0.3 % (0.1-1.2); Basophil (Absolute #) 0.02 x10^3/uL (0.01-0.08); Eosinophil % 4.7 % (0.7-5.8); Eosinophil (Absolute #) 0.32 x10^3/uL (0.04-0.36); Hemoglobin 14.9 g/dL (11.2-15.7); IMMATURE GRAN # 0.02 x10^3u/L (0.001-0.031); IMMATURE GRAN % 0.3 % (0.001-0.429); Lymphocyte (Absolute #) 2.14 x10^3/uL (1.18-3.74); Lymphocytes % 31.2 % (19.3-51.7); Mean Cell Volume 86.6 fL (79.4-94.8); Mean Corpuscular Hemoglobin 29.3 pg (25.6-32.2); Mean Corpuscular Hgb Concent. 33.9 g/dL (32.2-35.5); Mean Platelet Volume 9.7 fL (9.4-12.3); Monocyte (Absolute #) 0.34 x10^3/uL (0.24-0.86); Neutrophil % 58.5 % (34.0-71.1); Platelet Count 230 x10^3/uL (182-369); Red Blood Count 5.08 x10^6/uL (3.93-5.22); Red Cell Distribution Width 13.3 % (11.7-14.4); White Blood Count 6.9 x10^3/uL (3.98-10.04)
[2024-09-18] MEDS ORDERED: Zofran 4 MG/2 ML VIAL ONE (14:13)
[2024-09-18] MEDS ORDERED: Sodium Chloride 0.9% 1000 ML 1,000 ML ONE (14:13)
[2024-09-18] MEDS ORDERED: TORAdol 30 mg Injection ONE (14:13)
[2024-09-18 14:15] LABS: HCG URINE TEST NEGATIVE (NEGATIVE)
[2024-09-18] MEDS: Sodium Chloride 0.9% 1000 ML 1,000 ML IV STA (14:16)
[2024-09-18] MEDS: Zofran 4 MG/2 ML VIAL IV ONE (14:17)
[2024-09-18] MEDS: TORAdol 30 mg Injection IV ONE (14:18)
[2024-09-18 14:19] LABS: Appearance Cloudy (Clear); Bacteria None Seen /HPF (None Seen); Bilirubin Negative (Negative); Blood Large (Negative); Epithelial Cells Rare /HPF (None Seen); Glucose, Urine Negative (Negative); Hyaline Casts NONE SEEN /LPF (0-2); Ketones Trace (Negative); Leukocyte Esterase Moderate (Negative); Nitrite Negative (Negative); Ph 5.5 (4.6-8.0); Protein,Urine Dip 30 (Negative); RBC >100 /HPF (0-5); Specific Gravity 1.025 (1.005-1.030); WBC >100 /HPF (0-5)
[2024-09-18 14:24] LABS: ALBUMIN 4.4 g/dL (3.5-5.0); ANION GAP 12.1 MEQ/L (5-15); BILIRUBIN,TOTAL 0.7 mg/dL (0.2-1.3); Calcium 9.1 mg/dL (8.4-10.2); Creatinine 1 0.61 mg/dL (0.52-1.04); Potassium 4.2 mmol/L (3.5-5.1); Total Protein 7.1 g/dL (6.3-8.2)
[2024-09-18 14:26] LABS: INR 0.96 (0.8-3.0); PROTIME 10.5 SECONDS (9.4-12.5); PTT 29.1 SECONDS (25.1-36.5)
[2024-09-18] MEDS ORDERED: MORPHINE SULFATE 2 MG INJ ONE (15:59)
[2024-09-18] MEDS: MORPHINE SULFATE 2 MG INJ IV ONE (16:01)
[2024-09-18 16:10] VITALS: O2SAT 99
[2024-09-18] MEDS ORDERED: ROCEPHIN 1 GM / 100 ML NaCl 1 GM/100 ML IVPB IV ONE (16:17)
[2024-09-18] MEDS: ROCEPHIN 1 GM / 100 ML NaCl 1 GM/100 ML IVPB IV ONE (16:17)
[2024-09-18 16:22] VITALS: BP 119/70; PULSE 66; RESP 17
--- NOTE | 2024-09-18 19:06 | XRAY ---
Indication: Pain. Comparison: None Two-dimensional transabdominal and transvaginal pelvic sonogram performed. Comparison: None Uterus anteverted measuring 7.7 x 4.1 x 6.2 cm. 2 tiny cervical nabothian cysts, largest 4 mm. No other focal solid/cystic uterine mass. Endometrial stripe measures 4.2 mm. No endometrial cavity mass or fluid collection. Right ovary measures 5.4 x 3.8 x 4.0 cm and left measures 2.6 x 2.4 x 3.4 cm. Right ovary demonstrates 4.7 x 3.7 x 3.3 cm anechoic cyst. No suspicious solid adnexal mass or free fluid. Impression: 4.7 cm dominant right ovary cyst. Tiny nabothian cysts. Remaining transabdominal/transvaginal pelvic sonogram is negative. Comment: Preliminary report was given.
== END 2024-09-18 16:26 | disposition home or self-care (01) ==
LOC: ED 13:21
DX: N92.0 Excessive and frequent menstruation with regular cycle (principal); N93.9 Abnormal uterine and vaginal bleeding, unspecified; R11.0 Nausea; N39.0 Urinary tract infection, site not specified; N83.201 Unspecified ovarian cyst, right side; R10.2 Pelvic and perineal pain; I10 Essential (primary) hypertension; Z79.85 Long-term (current) use of injectable non-insulin antidiabetic drugs; Z79.899 Other long term (current) drug therapy; Z72.0 Tobacco use
CPT/HCPCS: 36415; 76856; 80053; 81001; 81025; 85025; 85610; 85730; 87077; 87086; 87186; 93041; 94760; 96361; 96374; 96375; 99284; 99285; J0696; J1885; J2270; J2405